=== PATIENT | female | born 1990 | race Hispanic/Latino ===

== ENCOUNTER 2022-11-28 17:26 | Emergency (ER) | payer OTHER, SELFPAY ==
--- OUTSIDE RECORDS SUMMARY | 2022-11-28 17:34 | XMS REPORT | Continuity of Care Document ---
:1990 Author Organization [facility] t Address [address] [place] [address] Care Team Providers Name Role Phone Juliet DENG, Lukas Childers Primary Care Physician [phone] GUSTAVO COLMENARES Attending Clinician Unavailable Billy Dennis Attending Clinician Felipe GARCIA, Frank Attending Clinician Unavailable Lisa Russell PA-C Attending Clinician LISA RUSSELL Attending Clinician Unavailable Doctor Unassigned, [place] Attending Clinician Unavailable Cecil Ojeda Attending Clinician Unavailable HOLDEN YUAN Attending Clinician Unavailable Pgy2 Attending Clinician Unavailable Yoav Delarosa MD Attending Clinician YOAV DELAROSA Attending Clinician Unavailable ALIYA VALENTIN Attending Clinician Unavailable Holden Emmanuel Attending Clinician BILLY DENNIS Attending Clinician Unavailable Will Mason Attending Clinician WILL MASON Attending Clinician Unavailable Huong Garvey Attending Clinician HUONG GARVEY Attending Clinician Unavailable Ngozi Zhang Attending Clinician Unavailable Aurelio Cantu Attending Clinician CHINYERE SCHWARTZ Attending Clinician Unavailable LIZZETTE MURILLO Attending Clinician Unavailable Shane Green Attending Clinician Gasper Cole Attending Clinician Gasper Cole Attending Clinician SHANE JADE Attending Clinician Unavailable Pari Saha Attending Clinician Unavailable Nael Preciado Attending Clinician Billy Dennis Attending Clinician Aman Matias Attending Clinician Shelley Nuñez Attending Clinician Shanae Cuevas Attending Clinician Marylu Strong Attending Clinician KNOW, DOES_NOT Admitting Clinician Unavailable Physician, No Primary or Family Admitting Clinician Unavaila ble Payers Payer Name Policy Type Policy Number Effective Date Expiration Date Hodan syed [facility] MEDICAID STAR [id number] 2018 00:00:00 Problems Condition Condition Condition Status Onset Resolution Last Treating Co mments Source Name Details Category Date Date Treatment Clinician Date Family Family Disease Active 2021-10 Univers planning, planning, 1-18 ity of IUD IUD 00:00: [place] (intrauter (intrauter 00 Me dical ine ine Branch device) device) check/rein check/rein sertion/re sertion/re moval moval Hyperprola Hyperprola Disease Active U nivers ctinemia ctinemia 05-25 ity of 00:00: [place] [address] Medical Branch Absence of Absence of Disease Active U nivers menstruati menstruati 05-25 it y of on on 00:00: [place] [address] Medical Branch FATTY FATTY Diagnosis Active 2022-04-08 Mem oria LIVER LIVER 04-08 09:19:00 l Active 00:00: Jose 04/08/2022 00 [place] C+, SOB C+, SOB Diagnosis Active 2022-02-23 Memoria Active 02-22 03:32:00 l 02/22/2022 00:00: Jesus alexander [address] CHEST PAIN CHEST Diagnosis Active 2022-02-23 Memoria PAIN 02-18 16:56:00 l Active 00:00: Jose 02/18/[address] [place] [address] K86.2 - K86.2 - Diagnosis Active 2019-102020-09-10 Memoria CYST OF CYST OF 10-25 12:42:00 l PANCREAS PANCREAS 00:01: Jesus alexander Active 00 08/25/2020 EBENEZER [place] R74.8 - R74.8 - Diagnosis Active 2018-102019-12-08 Memoria ABNORMAL ABNORMAL 2 09:54:00 l LEVELS OF LEVELS OF 00:01: Herm anant OTHER OTHER 00 SERUM K SERUM K Active 09/26/2019 EBENEZER [place] PTT LABS PTT LABS Diagnosis Active 2019-10-08 Memoria Active 06-13 10:51:00 l 06/13/2019 00:00: Jesus alexander [address] Center EGD / MAC EGD / MAC Diagnosis Active 2019-06-14 Memoria Active 06-08 09:03:00 l 06/08/2019 00:00: Jesus alexander [facility] [address] [place] R05 - R05 - Diagnosis Active 2017-102018-10-11 Me moria COUGH COUGH 2-10 15:31:00 l Active 00:01: Jose 10/02/2018 [facility] EBENEZER [place] VOMITING/F VOMITING/ Diagnosis Active 2017-11-15 Memoria EVER FEVER 11-15 12:25:00 l Active 00:00: Lyme 11/15/[address] [place] [address] History of History of Disease Active M ethodi pre-eclamp pre-eclamp 04-18 [facility] 00:00: Hospita 00 l Pyelonephr Pyelonephr Disease Active M ethodi itis itis 04-18 st affecting affecting 00:00: Hosp luis 00 l in third in third trimester trimester History of History of Disease Active Overview : Methodi 04-18 Formattin s t 00:00: g of this Hospita 00 note l might be different from the original. 2 previous s Obesity Obesity Disease Active Univers 05-20 ity of 00:00: [place] 00 Medical Branch Papanicola Papanicola Disease Active Overview : Univers ou smear ou smear 10-31 Formattin ity of of cervix of cervix 00:00: [place] of this [place] with low with low 00 note Medica l grade grade might be Branch squamous squamous different intraepith intraepith from the eliareli guan original. lesion lesion colpo (LGSIL) (LGSIL) 12/04/2014 History of History of Disease Active 2013-10 U nivers abnormal abnormal 2-30 ity of cervical cervical 00:00: [place] Papanicola Papanicola 00 Me dical ou smear ou smear Branch S/P S/P Disease Active Univers bilateral bilateral 4-09 ity of breast breast 00:00: [place] reduction reduction 00 [facility] Branch Acute Acute Problem Active 2022-10-15 Memor ia sinusitis sinusitis 10:57:24 l (disorder) (disorder) He ann Active Problem 10/15/2022 Medical Group Influenza- Influenza Problem Active 2022-10-15 Memoria like -like 10:57:24 l symptoms symptoms Jesus n (finding) (finding) Active Problem 10/15/2022 Medical Group Suspected Suspected Problem Active 2022-10-15 Memoria disease disease 10:57:24 l caused by caused by Herm anant 2019-nCoV 2019-nCoV Active Problem 10/15/2022 Medical Group R52 - R52 - Diagnosis Active 2021-10-20 Mem oria PAIN, PAIN, 07:50:00 l UNSPECIFIE UNSPECIFIE He rmann D D Active EBENEZER [place] R10.13 - R10.13 - Diagnosis Active 2021-12-14 Memoria EPIGASTRIC EPIGASTRIC 15:26:00 l PAIN R19.4 PAIN R19.4 He rmann - CHANGE - CHANGE Active EBENEZER [place] FATTY FATTY Diagnosis Active 2022-04-08 Mem oria (CHANGE (CHANGE 09:19:00 l OF) LIVER, OF) LIVER, He rmann NOT NOT ELSEWHERE ELSEWHERE C C Active [facility] CHANGE IN CHANGE IN Diagnosis Active 2022-04-08 Memoria BOWEL BOWEL 09:19:00 l HABIT HABIT [place] Active [facility] Bleeds Bleeds Problem Active 2022-10-15 Cristi norma easily easily 10:57:24 l (finding) (finding) Herm anant Active Problem 10/15/2022 Medical Group,[facility], [facility], EBENEZER [place],[facility] OPID [facility] Decreased Decreased Problem Active 2022-10-15 Memoria vitamin D vitamin D 10:57:24 l (finding) (finding) Herm anant Active Problem 10/15/2022 Medical Group,[facility], [facility], EBENEZER [place],[facility] OPID [facility] Fatigue Fatigue Problem Active 2022-10-15 Me moritheo (finding) (finding) 10:57:24 l Active Lyme Problem 10/15/2022 Medical Group,[facility], [facility], EBENEZER [place],[facility] KEVIND [facility] Gastroesop Gastroeso Problem Active 2022-10-15 Memoria hageal phageal 10:57:24 l reflux reflux Lyme disease disease (disorder) (disorder) Active Problem 10/15/2022 Medical Group,[facility], [facility], EBENEZER [place],[facility] OPID [facility] Mild Mild Problem Active 2022-10-15 Memor ia intermitte intermitte 10:57:24 l nt asthma nt asthma Herm anant (disorder) (disorder) Active Problem 10/15/2022 Medical Group,[facility], [facility], EBENEZER [place],[facility] OPID [facility] Patient Patient Problem Active 2022-10-15 Me moria encounter encounter 10:57:24 l status status Jose (finding) (finding) Active Problem 10/15/2022 Medical Group,[facility], EBENEZER [facility] Simple Simple Problem Active 2022-10-15 Cristi norma obesity obesity 10:57:24 l (disorder) (disorder) He rukhsana Active Problem 10/15/2022 Medical Group,[facility], EBENEZER [place],[facility] Disease Disease Problem Active 2022-10-15 Me moria caused by caused by 10:57:24 l Herm anant Active Problem 10/15/2022 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 Active Problem 10/15/2022 [facility] Exposure Exposure Diagnosis 2021-102022-10-15 2022-10-15 Memoria to to 12-13 10:57:24 10:57:24 l communicab communicab 16:39: He rukhsana le disease le disease 00 (event) (event) 10/12/2022 Diagnosis 10/15/2022 Medical Group General General Diagnosis 2021-102022-10-15 2022-10-15 Memoria finding of finding of 12-13 10:57:24 10:57:24 l observatio observatio 16:39: He rukhsana n of n of 00 patient patient (finding) (finding) 10/12/2022 Diagnosis 10/15/2022 Medical [facility] History of Past Illness Condition Condition Condition Status Onset Resolution Last Treating Co mments Source Name Details Category Date Date Treatment Clinician Date 2018- Problem 2022-02-26 2022-02-26 Memoria acute acute 02-24 21:10:42 21:10:42 l respirator respirator 00:33: He rukhsana y disease y disease 00 02/24/2022 [place] Cough Cough Problem 2017-102019-04-22 2019-04-22 M balajiritheo 10/08/2018 2-16 11:14:33 11:14:33 l 04/22/2019 04:21: Jesus RUIZ OPID [address] [place] Allergies, Adverse Reactions, Alerts Allergy Allergy Status Severity Reaction(s) Onset Inactive Treating Comm ents Source Name Type Date Date Clinician Penicill Propensi Active Hives Univer s ins ty to 4-25 ity of adverse 00:00: [place] reaction 00 Medical s Branch PENICILL Drug Active Hives Univers INS Class 4-25 ity of 00:00: [place] [facility] Penicill Propensi Active Hives Univer s ins ty to 4-25 ity of adverse 00:00: [place] reaction Medical s Branch Levoflox Drug Active Nausea Other Univers acin Allergy and/or 5-12 reaction( ity of Vomiting 00:00: s): VOMITINGO Medical ther Branch reaction( s): VOMITING LEVOFLOX DRUG Active N/V Univers ACIN INGREDI 5-12 ity of 00:00: [place] 00 Medical Branch levoflox DA Active [facility] acin 5-12 Clear 00:00: [place] 00 [facility] levoflox DA Active SV VOMITING [facility] acin 5-12 Clear 00:00: [place] 00 [facility] Adhesive Propensi Active Rash Univer s ty to 8-07 ity of adverse 00:00: [place] reaction 00 Medical s Branch ADHESIVE Drug Active Rash Univers Class 8-07 ity of 00:00: [place] [facility] Adhesive Propensi Active Rash Univer s ty to 807 ity of adverse 00:00: [place] reaction Medical s Branch Adhesive Propensi Active [place] [facility] ty to 807 Health adverse 00:00: reaction 00 s No Known DA Active U [facility] Allergie 1- [place] s 00:00: d 00 [facility] Levaquin Levaquin Active Jacky Garcia Social History Social Habit Start Date Stop Date Quantity Comments Source History SDOH University o f Alcohol Frequency [place] M edical Branch History SDOH University o f Alcohol Std [place] Medical Drinks Branch History SDOH University o f Alcohol Binge [place] Medic al Branch History of Passive smoker University of tobacco use [facility] Social History 2022-10-12 2022-10-12 [facility] ermann 16:28:49 16:28:49 Exposure to 2022-08-31 2022-09-10 Not sure University SARS-CoV-2 00:00:00 14:08:[address] [facility] [place] [place] ([facility] [place] Tobacco use and 2022-05-24 2022-05-24 Smokeless tobacco Un iversity of exposure 00:00:00 00:00:00 non-user [facility] Social History 2020-06-16 2020-06-16 [facility] ermann 15:01:13 15:01:13 Alcohol intake 2017-10-24 2017-10-24 Current drinker [facility] 00:00:00 00:00:00 of [facility] (finding) Alcohol Comment 2017-10-24 2017-10-24 occasional Catholic 00:00:00 00:00:00 Hospital Smoking Status Start Date Stop Date Source Tobacco smoking consumption unknown [facility] Tobacco smoking status [facility] Medications Ordered Filled Start Stop Current Ordering Indication Dosage Frequency Signature Comments Components Source Medication Medication Date Date Medication? Clinician (SIG) Name Name Medrol 2021-10 Yes See Memoria Dosepak 4 2-20 Instructio l mg oral 16:59: ns, PO, [place] tablet 00 Take by mouth as directed on label., X 6 day, # 21 tab, 0 Refill(s), Pharmacy: [facility] #[id number], 152.4, cm, 10/12/22 10:31:00 OXYHYDROGEN WELDER, Height, 82.955, kg, 10/12/22 10:31:00 OXYHYDROGEN WELDER, Weight Bromfed DM 2021-10 Yes 10 mL, PO, M emoria oral syrup 2-20 TID, PRN l 16:59: cough, X 6 Jose 00 day, # 180 mL, 0 Refill(s), Pharmacy: [facility] #[id number], 152.4, cm, 10/12/22 10:31:00 OXYHYDROGEN WELDER, Height, 82.955, kg, 10/12/22 10:31:00 OXYHYDROGEN WELDER, Weight LOESTRIN FE 2021-10 Yes [id number] 1{tbl} Take 1 Univers 1 mg-20 mcg 1-18 tablet by ity of (21)/75 mg 00:00: mouth in [place] as (7) tablet 00 the Medical morning. Branch norethindro 2021-10 Yes [id number] 1{tbl} Take 1 Univers ne 0.35 mg 1-18 tablet by ity of tablet 00:00: mouth in [place] 00 the Medical morning. Branch norethindro 2021-10 Yes [id number] 1{tbl} Take 1 Univers ne 0.35 mg 1-18 tablet by ity of tablet 00:00: mouth in [place] 00 the Medical morning. Branch norethindro 2021-10 Yes [id number] 1{tbl} Take 1 Univers ne 0.35 mg 1-18 tablet by ity of tablet 00:00: mouth in [place] 00 the Medical morning. Branch norethindro 2021-10 Yes [id number] 1{tbl} Take 1 Univers ne 0.35 mg 1-18 tablet by ity of tablet 00:00: mouth in [place] 00 the Medical morning. Branch norekingsleyndro 2021-10 Yes [id number] 1{tbl} Take 1 Univers ne 0.35 mg 1-18 tablet by ity of tablet 00:00: mouth in [place] 00 the Medical morning. Branch ibuprofen 2021-10- Yes [id number] 800mg Take 1 Univers 800 mg 1-18 11-24 tablet by ity of tablet 00:00: 05:59 mouth in [place] 00 :00 the Medical morning Branch and 1 tablet at noon and 1 tablet in the evening. Take with meals. Do all this for 5 days. ibuprofen 2021-10- Yes [id number] 800mg Take 1 Univers 800 mg 1-18 11-24 tablet by ity of tablet 00:00: 05:59 mouth in [place] 00 :00 the Medical morning Branch and 1 tablet at noon and 1 tablet in the evening. Take with meals. Do all this for 5 days. ibuprofen 2021-10- Yes [id number] 800mg Take 1 Univers 800 mg 1-18 11-24 tablet by ity of tablet 00:00: 05:59 mouth in [place] 00 :00 the Medical morning Branch and 1 tablet at noon and 1 tablet in the evening. Take with meals. Do all this for 5 days. ibuprofen 2021-10- No [id number] 800mg Take 1 Univers 800 mg 1-18 11-24 tablet by ity of tablet 00:00: 05:59 mouth in [place] 00 :00 the Medical morning Branch and 1 tablet at noon and 1 tablet in the evening. Take with meals. Do all this for 5 days. ibuprofen 2021-10- No [id number] 800mg Take 1 Univers 800 mg 1-18 11-24 tablet by ity of tablet 00:00: 05:59 mouth in [place] 00 :00 the Medical morning Branch and 1 tablet at noon and 1 tablet in the evening. Take with meals. Do all this for 5 days. ibuprofen 2021-10- No [id number] 800mg Take 1 Univers 800 mg 1-18 11-24 tablet by ity of tablet 00:00: 05:59 mouth in [place] 00 :00 the Medical morning Branch and 1 tablet at noon and 1 tablet in the evening. Take with meals. Do all this for 5 days. LOESTRIN FE 2021-10- No [id number] 1{tbl} Take 1 Univers 1 mg-20 mcg 1-18 11-18 tablet by it y of (21)/75 mg 00:00: 00:00 mouth in [place] (7) tablet 00 :00 the Medical morning. Branch LOESTRIN FE 2021-10- No [id number] 1{tbl} Take 1 Univers 1 mg-20 mcg 1-18 11-18 tablet by it y of (21)/75 mg 00:00: 00:00 mouth in [place] (7) tablet 00 :00 the Medical morning. Branch LOESTRIN FE 2021-10- No [id number] 1{tbl} Take 1 Univers 1 mg-20 mcg 1-18 11-18 tablet by it y of (21)/75 mg 00:00: 00:00 [place] (7) tablet 00 :00 the Medical morning. Branch levonorgest 2021- No [id number] 1{devic Univers reL 8 08-17 e} ity of (KYLEENA) 20:48: 22:22 [place] IUD 1 00 :00 Senior Process Engineer Branch levonorgest 2021- No [id number] 1{devic 1 Device, Univers reL 817 08-17 e} Intrauteri ity of (KYLEENA) 20:48: 22:22 ne, ONCE, [place] IUD 1 00 :00 1 dose, On Senior Process Engineer [facility] Branch 06/09/22 at 1600, Routine No known No No known Unive rs medications 06-09 medication it y of 16:01: s [address] ketOROLAC No 15 mg, Memori a 15 mg/mL -16 Route: IV, l injectable 16:03: ONCE, Jesus n solution 00 Dosing Weight 77.273, kg, Start date: 04/08/22 11:03:00 CDT, Stop date: 04/08/22 11:03:00 CDT Augmentin 2021-0 Yes 875 mg = 1 Me moria 875 mg oral 5-17 tab, PO, l tablet 15:53: Q12H, X 7 Jesus n 00 day, # 14 tab, 0 Refill(s), other levocetiriz Yes 5 mg = 1 Me moria ine 5 mg 5-17 tab, PO, l oral tablet 15:47: QPM, # 30 H ermann 00 tab, 2 Refill(s), Pharmacy: [facility] #[id number], 152.4, cm, 03/09/22 10:32:00 CDT, Height, 80.653, kg, 03/09/22 10:32:00 CDT, Weight omeprazole 0 Yes 20 mg = 1 Me moria 20 mg oral 5-17 tab, PO, l enteric 15:31: Daily, 0 Jesus n coated 00 Refill(s) tablet albuterol Yes 2 puff, Memor ia 90 mcg/inh 5-04 INHALATION l inhalation 00:30: , QID, # Her mendes aerosol 00 17 gm, 0 Refill(s), 152.4, cm, 02/23/22 16:06:00 CDT, Height, 82.2, kg, 02/23/22 16:06:00 CDT, Weight predniSONE Yes 20 mg = 1 Me moria 20 mg oral 5-04 tab, PO, l tablet 00:29: Daily, X 5 Ambar nn 00 day, # 5 tab, 0 Refill(s), 152.4, cm, 02/23/22 16:06:00 CDT, Height, 82.2, kg, 02/23/22 16:06:00 CDT, Weight acetaminoph No Notes: Do M emoria en 02-23 not exceed l 22:08: 4 gm/day. Jose (Same as: Tylenol) ibuprofen No Notes: Memori a - (Same as: l 22:08: Motrin) "Do Not Crush" Take with food. NS (Bolus) No 500 mL, Cristi norma IV - 500 ml/hr, l 22:08: Infuse Over: 1 hr, Route: IV, 500, Drug form: INJ, ONCE, Priority: STAT, Dosing Weight 82.2 kg, Start date: 02/23/22 17:08:00 CDT, Stop date: 02/23/22 17:08:00 CDT, 0 predniSONE Yes 40 mg = 2 Me moria 20 mg oral 5-03 tab, PO, l tablet 20:12: Daily, X 5 Ambar nn day, # 10 tab, 0 Refill(s), Pharmacy: [facility] #[id number], 152.4, cm, 02/23/22 2:35:00 CDT, Height, 84.091, kg, 02/23/22 2:35:00 CDT, Weight benzonatate Yes 10 ea, 0 Me moria 100 mg oral 5-03 Refill(s) l capsule 19:45: [place] 00 Paxlovid Yes 30 ea, 0 Memor ia 150 mg-100 5-03 Refill(s) l mg oral 19:45: Jose tablet 00 Aurovela Fe Yes 84 ea, Cristi norma 1.5/30 oral 5-03 TAKE 1 l tablet 19:45: TABLET BY Jesus n 00 MOUTH DAILY, 0 Refill(s) albuterol Yes 75 mL, 0 Cristi norma 0.083% 5- Refill(s) l inhalation 19:45: Jose solution 00 ibuprofen Yes 30 ea, Memori a 600 mg oral 5-03 TAKE 1 l tablet 19:44: TABLET BY Jesus n 00 MOUTH EVERY 8 HOURS FOR 10 DAYS NEEDED FOR PAIN, 0 Refill(s) budesonide Yes 60 mL, 0 Mem oria 0.25 mg/2 5-03 Refill(s) l mL 19:44: Jose inhalation 00 suspension bromphenira Yes 200 mL, Mem oria mine/dextro 03 TAKE 5 TO l methorphan/ 19:44: 10 ML BY He rmann PSE 2 mg-10 00 MOUTH mg-30 mg/5 EVERY 6 mL oral HOURS syrup NEEDED FOR COUGH, 0 Refill(s) non-formula Yes 4 ea, TEST Memoria ry 02-23 l 19:44: DIRECTED [place] 00 TODAY, Refill(s) 0 Vitamin D2 Yes 50,000 Memor ia 50,000 intl 9-23 IntlUnit = l units oral 20:57: 1 cap, PO, H ermann capsule 00 2x/Wk, # 24 cap, 1 Refill(s), Pharmacy: [facility] #[id number], 152.4, cm, 07/14/21 8:56:00 CDT, Height, 80.256, kg, 07/14/21 8:56:00 CDT, Weight Vitamin D2 Yes 50,000 Memor ia 50,000 intl 9-23 IntlUnit = l units oral 20:57: 1 cap, PO, H ermann capsule 00 2x/Wk, # 24 cap, 1 Refill(s), Pharmacy: [facility] #[id number], 152.4, cm, 07/14/21 8:56:00 CDT, Height, 80.256, kg, 07/14/21 8:56:00 CDT, Weight ergocalcife Yes [id number] Take [place] rol 9-23 50,000 Health (Vitamin 00:00: Units by D2) 1.25 MG 00 mouth 2 (00475 UT) (two) capsule times a week. 1 capsule twice a week {6 No See Memoria (Azithromyc 3-21 Instructio l in 250 MG 00:56: ns, Take 2 He rmann Oral Tablet 00 tablets by [Zithromax] mouth the ) } Pack first day [Z-PAKS] then 1 tablet by mouth days 2-5., X 5 day, # 6 tab, 0 Refill(s), 152.4, cm, 01/10/21 19:10:00 CDT, Height, 83.636, kg, 01/10/21 19:10:00 CDT, Weight ProAir HFA 0 Yes 2 puff, Cristi norma 90 mcg/inh 1-14 INHALER, l inhalation 20:22: Q4H, PRN Her mendes aerosol 00 wheezing, with coughing, adapter or shortness of breath, # 1 ea, 1 Refill(s), Pharmacy: [facility] #[id number], 152.4, cm, 06/16/20 9:59:00 CDT, Height, 76.364, kg, 06/16/20 9:59:00 CDT, Weight 200 ACTUAT 2019-0 Yes 2 puff, Cristi norma Albuterol 8-24 INHALER, l 0.09 18:17: Q4H, PRN Jose MG/ACTUAT 00 wheezing, Metered coughing, Dose or Inhaler shortness [ProAir of breath, HFA] # 1 ea, 1 Refill(s), Pharmacy: [facility] #[id number], 152.4, cm, 06/16/20 9:59:00 CDT, Height, 76.364, kg, 06/16/20 9:59:00 CDT, Weight DME Yes See Memoria Addition #1 8-24 Instructio l 18:17: ns, Please Jose 00 dispense one Pulse Oximeter for Oxygen saturation monitoring , # 1 ea, 0 Refill(s), Pharmacy: [facility] #[id number], 152.4, cm, 06/16/20 9:59:00 CDT, Height, 76.364, kg, 06/16/20 9:59:00 CDT, Weight {2019-0 Yes See Memoria (Methylpred 7-15 Instructio l nisolone 4 20:25: ns, PO, Herm anant MG Oral 00 Take by Tablet mouth as [Medrol]) } directed Pack on label. [Medrol DO NOT Dosepak] TAKE IF YOU ARE , X 6 day, # 21 tab, 0 Refill(s), Pharmacy: [facility] #[id number], Disregard previous RX, 152.4, cm, 05/01/20 20:26:00 CDT, Height, 76.364, kg, 05/01/20 20:... {21 2019-0 No See Memoria (Methylpred 7-15 Instructio l nisolone 4 20:11: ns, PO, Herm anant MG Oral 00 Take by Tablet mouth as [Medrol]) } directed Pack on label., [Medrol X 6 day, # Dosepak] 21 tab, 0 Refill(s), [id number], 152.4, cm, 05/01/20 20:26:00 CDT, Height, 76.364, kg, 05/01/20 20:26:00 CDT, Weight 200 ACTUAT 2020-0 Yes 2 puff, Cristi norma Albuterol 7-15 INHALER, l 0.09 20:10: Q4H, PRN [place]yme MG/ACTUAT 00 wheezing, Metered coughing, Dose or Inhaler shortness [ProAir of breath, HFA] # 1 ea, 0 Refill(s), [id number], 152.4, cm, 05/01/20 20:26:00 CDT, Height, 76.364, kg, 05/01/20 20:26:00 CDT, Weight Ofloxacin 3 2020-0 Yes 5 drp, Cristi norma MG/ML Otic 7-10 LEFT EAR, l Solution 02:10: BID, X 10 Herm anant day, # 10 mL, 0 Refill(s), [id number], 152.4, cm, 05/01/20 20:26:00 CDT, Height, 76.364, kg, 05/01/20 20:26:00 CDT, Weight Amoxicillin 2020-0 Yes 875 mg = 1 Memoria 875 MG / 7-10 tab, PO, l Clavulanate 02:10: Q12H, X 7 H ermann 125 MG Oral 00 day, # 14 Tablet tab, 0 [Augmentin Refill(s), 875-mg] [id number], 152.4, cm, 05/01/20 20:26:00 CDT, Height, 76.364, kg, 05/01/20 20:26:00 CDT, Weight meclizine 2020-0 Yes 12.5 mg = Mem oria 12.5 mg 7-10 1 tab, PO, l oral tablet 02:10: BID, PRN He rmann 00 as needed for dizziness, X 7 day, # 14 tab, 0 Refill(s), Pharmacy: [facility] #[id number], 152.4, cm, 05/01/20 20:26:00 CDT, Height, 76.364, kg, 05/01/20 20:26:00 CDT, Weight SUCRALFATE 2019-0 Yes See Memoria 1GM/10ML 4-10 Instructio l SUSPENSION 15:03: ns, # Jesus n 30 3,600 mL, SHAKE LIQUID AND TAKE 10 ML BY MOUTH BEFORE MEALS AND AT BEDTIME, [id number] { Yes See Memoria (Methylpred 4-08 Instructio l nisolone 4 19:16: ns, PO, Herm anant MG Oral 00 Take by Tablet mouth as [Medrol]) } directed Pack on label., [Medrol X 6 day, # Dosepak] 21 tab, 0 Refill(s), [id number] levocetiriz 2019-0 Yes See Memori a ine 5 mg 4-08 Instructio l oral tablet 19:15: ns, # 90 He rmann 53 tab, TAKE 1 TABLET BY MOUTH EVERY EVENING, [facility] STORE #[id number] { No See Memoria (Methylpred 4-08 Instructio l nisolone 4 18:36: ns, PO, Herm anant MG Oral 00 Take by Tablet mouth as [Medrol]) } directed Pack on label., [Medrol X 6 day, # Dosepak] 2 tab, 0 Refill(s), [id number] levocetiriz 2020-0 Yes 5 mg = 1 Me moria ine 5 mg 4-08 tab, PO, l oral tablet 18:35: QPM, # 30 H ermann 00 tab, 1 Refill(s), [id number] Sucralfate Yes 1 gm = 10 Me moria 100 MG/ML 4-08 ml, PO, l Oral 18:24: Before Lyme Suspension 00 Meals & Bedtime, # 200 ml, 0 Refill(s), [id number] 200 ACTUAT Yes 2 puff, Cristi norma Albuterol 4-08 INHALER, l 0.09 18:24: Q6H, PRN Lyme MG/ACTUAT 00 wheezing, Metered coughing, Dose or Inhaler shortness [ProAir of breath, HFA] # 1 ea, 1 Refill(s), Pharmacy: [facility] STORE #[id number] Sucralfate 2018-10 Yes 1 gm = 10 Me moria 100 MG/ML 1-26 ml, PO, l Oral 18:03: Before Lyme Suspension 00 Meals & Bedtime, # 200 ml, 0 Refill(s), [id number] Calcium 2019-0 No 1,000 mL, Memor ia Chloride 8-22 Rate: 75 l 0.0014 14:40: ml/hr, Lyme MEQ/ML / 00 Infuse Potassium over: 13.3 Chloride hr, Route: 0.004 IV, Dosing MEQ/ML / Weight Sodium 70.455 kg, Chloride Total 0.103 Volume: MEQ/ML / 1,000, Sodium Start Lactate date: 0.028 06/14/19 MEQ/ML 9:40:00 Injectable CDT, Solution Duration: 1 day, Stop date: 06/15/19 9:39:00 CDT, 1.75, m2, 0 Sodium 2019-0 No 1,000 mL, Memori a Chloride 8-22 Rate: 75 l 0.9% IV 14:40: ml/hr, Lyme 1,000 mL 00 Infuse over: 13.3 hr, Route: IV, Dosing Weight 70.455 kg, Total Volume: 1,000, Start date: 06/14/19 9:40:00 CDT, Duration: 1 day, Stop date: 06/15/19 9:39:00 CDT, 1.75, m2, 0 omeprazole 2019- Yes See Memoria 40 mg oral 8-13 Instructio l delayed 16:42: ns, # 90 Jesus n release 55 unknown capsule unit, TAKE 1 CAPSULE BY MOUTH DAILY, Pharmacy: [facility] ST[facility] #[id number] Fluticasone 2019 Yes See Memori a propionate 8-13 Instructio l 0.05 16:42: ns, # 48 Lyme MG/ACTUAT 49 mL, Metered Refill(s) Dose Nasal 1, SHAKE [place] LIQUID AND USE 2 SPRAYS IN EACH NOSTRIL DAILY, Pharmacy: [facility] STORE #[id number] 200 ACTUAT 2018- Yes 2 puff, Cristi norma Albuterol 8-13 INHALER, l 0.09 16:42: Q6H, PRN Lyme MG/ACTUAT 00 wheezing, Metered coughing, Dose or Inhaler shortness [ProAir of breath, HFA] # 1 ea, 1 Refill(s), [id number] Fluticasone No 2 spray, Me moria propionate 8-13 NASAL, l 0.05 16:26: Daily, in Jose MG/ACTUAT 00 each Metered nostril, # Dose Nasal 16 gm, 1 [place] Refill(s), [Flonase] [id number] bifidobacte Yes 1 cap, PO, Memoria rium-lactob 8-13 Daily, # l acillus 16:25: 30 cap, 0 Ambar nn oral 00 Refill(s), capsule [id number] omeprazole No 40 mg = 1 Me moria 40 mg oral 8-13 cap, PO, l delayed 16:24: Daily, # Jesus n release 00 30 cap, 0 capsule Refill(s), [id number] { Yes See Memoria (Methylpred 8-13 Instructio l nisolone 4 16:23: ns, PO, Herm anant MG Oral 00 Take by Tablet mouth as [Medrol]) } directed Pack on label., [Medrol X 6 day, # Dosepak] 1 Pack, 0 Refill(s), [id number] Bromphenira 2017-10 No 10 mL, PO, Memoria mine 2-10 Q4H, PRN l Maleate 0.4 20:02: cough, X 8 Lyme MG/ML / 00 day, # 240 Dextrometho mL, 0 rphan Refill(s), Hydrobromid Pharmacy: e 2 MG/ML / [facility] [id number] Hydrochlori de 6 MG/ML Oral Solution [Bromfed DM] {2017-10 Yes See Memoria (Methylpred 2-10 Instructio l nisolone 4 20:02: ns, PO, as H ermann MG Oral 00 directed Tablet on package [Medrol]) } labeling, Pack # 1 Pack, [Medrol 0 Dosepak] Refill(s), Pharmacy: [facility] [id number] 200 ACTUAT 2017-10 Yes 2 puff, Cristi norma Albuterol 2-05 INHALER, l 0.09 20:31: Q4H, PRN Lyme MG/ACTUAT 00 for Metered wheezing, Dose # 8.5 gm, Inhaler 0 [ProAir Refill(s) HFA] Vitamin D3 2017-10 Yes 50,000 Memor ia 50,000 intl 2-04 IntlUnit = l units oral 13:09: 1 cap, PO, H ermann capsule 00 qWeek, # 12 cap, 0 Refill(s), [id number] Esomeprazol 2017-10 Yes 20 mg = 1 M emoria e 20 MG 1-28 cap, PO, l Enteric 16:47: Daily, # Jesus n Coated 00 90 cap, 0 Capsule Refill(s), [id number] 200 ACTUAT 2017-10 No 2 puff, Cristi norma Albuterol 1-28 INHALATION l 0.09 16:47: , Q4H, # 1 Jose MG/ACTUAT 00 unit, 1 Dry Powder Refill(s), Inhaler [facility] [id number] No known No No known Metho di medications 10-[address] 01:08: [facility] 06 l Immunizations Ordered Filled Immunization Date Status Comments [facility] e Immunization Name Name Varicella 2022-07-09 Completed [facility] Varicella 2022-07-09 Completed [facility] 00:00[facility]00 [facility] PFIZER COVID-19 2022-05-25 Completed [facility] MRNA VACCINATION 00:00:00 [facility] PFIZER COVID-19 2022-05-25 Completed [facility] MRNA VACCINATION 00:00:00 [facility] HPV9 2022-05-24 Completed [facility] 00:00:00 [facility] HPV9 2022-05-24 Completed [facility] 00:00:00 [facility] HPV9 2022-05-24 Completed [facility] 00:00:00 [facility] HPV9 2022-05-24 Completed [facility] 00:00:00 [facility] HPV9 2022-05-24 Completed [facility] 00:00:00 [facility] HPV9 2022-05-24 Completed [facility] 00:00:00 [facility] HPV9 2022-05-24 Completed [facility] 00:00:00 [facility] 2022-05-24 Completed [facility] 00:00:00 [facility] Influenza Virus 2021-08-03 Completed [facility]it [facility] IM 3+ 00:00:00 [facility] Influenza Virus 2021-08-03 Completed [facility]it y [facility] IM 3+ 00:00:00 [facility] Influenza Virus 2021-08-03 Completed [facility] IM 3+ 00:00:00 [facility] Influenza Virus 2021-08-03 Completed [facility]it [facility] IM 3+ 00:00:00 [facility] Influenza Virus 2021-08-03 Completed [facility]it y of [facility] IM 3+ 00:00:00 [facility] Influenza Virus 2021-08-03 Completed [facility]it [facility] IM 3+ 00:00:00 [facility] Influenza Virus 2021-08-03 Completed [facility]it y of [facility] IM 3+ 00:00:00 [facility] Influenza Virus 2021-08-03 Completed [facility]it y [facility] IM 3+ 00:00:00 [facility] TDAP 2021-06-09 Completed [facility] of 00:00:00 [facility] TDAP 2021-06-09 Completed [facility] 00:00:00 [facility] TDAP 2021-06-09 Completed [facility] 00:00:00 [facility] TDAP 2021-06-09 Completed [facility] 00:00:00 [facility] TDAP 2021-06-09 Completed [facility] 00:00:00 [facility] TDAP 2021-06-09 Completed [facility] 00:00:00 [facility] TDAP 2021-06-09 Completed [facility] 00:00:00 [facility] TDAP 2021-06-09 Completed [facility] 00:00:00 [facility] TDAP 2017-04-13 Completed [facility] 00:00:00 [facility] TDAP 2017-04-13 Completed [facility] 00:00:00 [facility] TDAP 2017-04-13 Completed [facility] 00:00:00 [facility] TDAP 2017-04-13 Completed [facility] 00:00:00 [facility] TDAP 2017-04-13 Completed [facility] 00:00:00 [facility] TDAP 2017-04-13 Completed [facility] 00:00:00 [facility] TDAP 2017-04-13 Completed [facility] 00:00:00 [facility] TDAP 2017-04-13 Completed [facility] 00:00:[address] [facility] HPV 2014-10-22 Completed [facility] 00:00:[address] [facility] HPV 2014-10-22 Completed [facility] 00:00:00 [facility] HPV 2014-10-22 Completed [facility] 00:00:[address] [facility] HPV 2014-10-22 Completed [facility] 00:00:[address] [facility] HPV 2014-10-22 Completed [facility] of 00:00:[address] [facility] HPV 2014-10-22 Completed University of 00:00:[address] [facility] HPV 2014-10-22 Completed [facility] of 00:00:[address] [facility] HPV 2014-10-22 Completed University of 00:00:[address] [facility] TDAP 2014-04-23 Completed [facility] of 00:00:00 [facility] TDAP 2014-04-23 Completed [facility] 00:00:00 [facility] TDAP 2014-04-23 Completed [facility] 00:00:00 [facility] TDAP 2014-04-23 Completed [facility] 00:00:00 [facility] TDAP 2014-04-23 Completed [facility] 00:00:00 [facility] TDAP 2014-04-23 Completed [facility] 00:00:00 [facility] TDAP 2014-04-23 Completed [facility] 00:00:00 [facility] TDAP 2014-04-23 Completed [facility] 00:00:[address] [facility] Rubella 2012-08-24 Completed [facility] 00:00:00 [facility] Rubella 2012-08-24 Completed [facility] 00:00:00 [facility] Rubella 2012-08-24 Completed [facility] 00:00:00 [facility] Rubella 2012-08-24 Completed [facility] 00:00:00 [facility] Rubella 2012-08-24 Completed [facility] 00:00:00 [facility] Rubella 2012-08-24 Completed [facility] 00:00:00 [facility] Rubella 2012-08-24 Completed [facility] 00:00:00 [facility] Rubella 2012-08-24 Completed [facility] of 00:00:00 [facility] MMR 2012-06-11 Completed [facility] 00:00:00 [facility] MMR 2012-06-11 Completed [facility] 00:00:00 [facility] MMR 2012-06-11 Completed [facility] 00:00:00 [facility] MMR 2012-06-11 Completed [facility] 00:00:00 [facility] MMR 2012-06-11 Completed [facility] 00:00:00 [facility] MMR 2012-06-11 Completed [facility] 00:00:00 [facility] MMR 2012-06-11 Completed [facility] of 00:00:00 [facility] MMR 2012-06-11 Completed [facility] of 00:00:00 [facility] TDAP 2011-06-06 Completed [facility] 00:00:00 [facility] TDAP 2011-06-06 Completed [facility] 00:00:00 [facility] TDAP 2011-06-06 Completed [facility] 00:00:00 [facility] TDAP 2011-06-06 Completed [facility] 00:00:00 [facility] TDAP 2011-06-06 Completed [facility] 00:00:00 [facility] TDAP 2011-06-06 Completed [facility] 00:00:00 [facility] TDAP 2011-06-06 Completed [facility] 00:00:00 [facility] TDAP 2011-06-06 Completed [facility] 00:00:00 [facility] MMR 2009-04-17 Completed [facility] 00:00:00 [facility] MMR 2009-04-17 Completed [facility] 00:00:00 [facility] MMR 2009-04-17 Completed [facility] 00:00:00 [facility] MMR 2009-04-17 Completed [facility] 00:00:00 [facility] MMR 2009-04-17 Completed [facility] 00:00:00 [facility] MMR 2009-04-17 Completed [facility] 00:00:00 [facility] MMR 2009-04-17 Completed [facility] 00:00:00 [facility] MMR 2009-04-17 Completed [facility] 00:00:00 [facility] Td 2002-10-24 Completed [facility] 00:00:00 [facility] Td 2002-10-24 Completed [facility] 00:00:00 [facility] Td 2002-10-24 Completed [facility] 00:00:00 [facility] Td 2002-10-24 Completed [facility] 00:00:00 [facility] Td 2002-10-24 Completed [facility] 00:00:00 [facility] Td 2002-10-24 Completed [facility] 00:00:00 [facility] Td 2002-10-24 Completed [facility] 00:00:00 [facility] Td 2002-10-24 Completed [facility] of 00:00:[address] [facility] Vital Signs Vital Name Observation Time Observation Value Comments Source Systolic blood 2022-09-10 22:07:00 132 mm[Hg] Univer sity of pressure [facility] Diastolic blood 2022-09-10 22:07:00 88 mm[Hg] Unive rsity of pressure [facility] Heart rate 2022-09-10 20:05:00 71 /min Universi ty [facility] Body temperature 2022-09-10 20:05:00 [facility].06 [facility] 2022-09-10 20:05:00 19 /min Univ [facility] Body height 2022-09-10 20:05:00 152.4 cm [facility] Body weight 2022-09-10 20:05:00 82.101 kg [facility] BMI 2022-09-10 20:05:00 35.35 kg/m2 [facility] Systolic blood 2022-06-09 19:40:00 123 mm[Hg] Univer sity of pressure [facility] Diastolic blood 2022-06-09 19:40:00 81 mm[Hg] Unive rsity of pressure [facility] Heart rate 2022-06-09 19:40:00 85 /min Universi ty [facility] Body temperature 2022-06-09 19:40:00 36.22 [facility] Res[facility] rate 2022-06-09 19:40:00 18 /min [facility] Body height 2022-06-09 19:40:00 152.4 cm [facility] Body weight 2022-06-09 19:40:00 81.647 kg [facility] BMI 2022-06-09 19:40:00 35.15 kg/m2 [facility] Systolic blood 2021-10-02 15:08:00 142 mm[facility]Hg[facility] Diastolic blood 2021-10-02 15:08:00 91 mm[facility]Hg[facility] Heart rate 2021-10-02 15:08:00 84 [facility] 2021-10-02 15:08:00 [facility]56 [facility] Body height 2021-10-02 15:08:00 [facility] weight 2021-10-02 15:08:00 [facility]874 [facility] BMI 2021-10-02 15:08:00 35.25 [facility] Heart Rate 2022-10-12 16:31:00 [facility] Systolic (mm Hg) 2022-10-12 16:31:00 Cristi rial Jose Diastolic (mm Hg) 2022-10-12 16:31:00 Mem [facility] Height 2022-10-12 16:31:00 5 [ft_i] [facility] Weight 2022-10-12 16:31:00 [facility] BMI Calculated 2022-10-12 16:31:00 Memori al Jose Height 2022-04-08 14:42:00 152.4 cm [facility] Weight 2022-04-08 14:42:00 [facility] BMI Calculated 2022-04-08 14:42:00 [facility] Heart Rate 2022-03-09 15:32:00 [facility] Systolic (mm Hg) 2022-03-09 15:32:00 Cristi rial Jose Diastolic (mm Hg) 2022-03-09 15:32:00 Mem [facility] Height 2022-03-09 15:32:00 152.4 cm [facility] Weight 2022-03-09 15:32:00 [facility] BMI Calculated 2022-03-09 15:32:00 Memori al [facility] Temperature Oral (F) 2022-02-24 01:50:00 98.4 F [facility] Heart Rate 2022-02-24 01:50:00 [facility] Respitory Rate 2022-02-24 01:50:00 Memori al Jose Systolic (mm Hg) 2022-02-24 01:50:00 Cristi rial [facility] Diastolic (mm Hg) 2022-02-24 01:50:00 [facility] Height 2022-02-23 21:06:00 152.4 cm [facility] BMI Calculated 2022-02-23 21:06:00 [facility]ori al [facility] Weight 2022-02-23 21:06:00 [facility] Systolic (mm Hg) 2022-02-23 21:06:00 Cristi rial Jose Diastolic (mm Hg) 2022-02-23 21:06:00 Mem [facility] Heart Rate 2022-02-23 21:06:00 [facility] Respitory Rate 2022-02-23 21:06:00 Memori al [place] Temperature Oral (F) 2022-02-23 21:06:00 98.9 F [facility] Temperature Oral (F) 2022-02-23 10:30:00 98.4 F [facility] Heart Rate 2022-02-23 10:30:00 [facility] Respitory Rate 2022-02-23 10:30:00 [facility]ori [facility] Systolic (mm Hg) 2022-02-23 10:30:00 Cristi rial Jose Diastolic (mm Hg) 2022-02-23 10:30:00 [facility] Temperature Oral (F) 2022-02-23 09:48:00 98.2 F [facility] Heart Rate 2022-02-23 09:48:00 [facility] Respitory Rate 2022-02-23 09:48:00 [facility]ori [facility] [place] Systolic (mm Hg) 2022-02-23 09:48:00 Cristi rial [place] Diastolic (mm Hg) 2022-02-23 09:48:00 [facility] Height 2022-02-23 07:35:00 152.4 cm [facility] BMI Calculated 2022-02-23 07:35:00 Memori al Jose Weight 2022-02-23 07:35:00 [facility] Systolic (mm Hg) 2022-02-23 07:35:00 Cristi rial [place] Diastolic (mm Hg) 2022-02-23 07:35:00 Mem orial Jose Heart Rate 2022-02-23 07:35:00 [facility] Respitory Rate 2022-02-23 07:35:00 [facility] [place] Temperature Oral (F) 2022-02-23 07:35:00 98.5 F [facility] Systolic (mm Hg) 2021-07-14 13:56:00 Cristi rial Jose Diastolic (mm Hg) 2021-07-14 13:56:00 [facility] Heart Rate 2021-07-14 13:56:00 [facility] Height 2021-07-14 13:56:00 152.4 cm [facility] Weight 2021-07-14 13:56:00 [facility] BMI Calculated 2021-07-14 13:56:00 [facility] Systolic (mm Hg) 2021-01-11 00:10:00 Cristi rial Jose Diastolic (mm Hg) 2021-01-11 00:10:00 Mem o[facility] Heart Rate 2021-01-11 00:10:00 [facility] Height 2021-01-11 00:10:00 152.4 cm [facility] Weight 2021-01-11 00:10:00 [facility] BMI Calculated 2021-01-11 00:10:00 Memori al [facility] Height 2020-06-16 14:59:00 152.4 cm [facility] Weight 2020-06-16 14:59:00 [facility] BMI Calculated 2020-06-16 14:59:00 Mem[facility] al [facility] Height 2020-05-02 01:26:00 152.4 cm [facility] Weight 2020-05-02 01:26:00 [facility] BMI Calculated 2020-05-02 01:26:00 [facility] Systolic (mm Hg) 2020-05-02 01:26:00 Cristi rial [facility] Diastolic (mm Hg) 2020-05-02 01:26:00 Mem o[facility] Jose Heart Rate 2020-05-02 01:26:00 [facility] Temperature Oral (F) 2020-05-02 01:26:00 98.5 F [facility] Height 2020-05-01 18:55:00 152.4 cm [facility] Weight 2020-05-01 18:55:00 [facility] BMI Calculated 2020-05-01 18:55:00 Memori al Jose Systolic (mm Hg) 2019-09-18 17:50:00 Cristi rial [facility] Diastolic (mm Hg) 2019-09-18 17:50:00 [facility] Heart Rate 2019-09-18 17:50:00 [facility] Temperature Oral (F) 2019-09-18 17:50:00 98.0 F [facility] Height 2019-09-18 17:50:00 149.86 cm [facility] Weight 2019-09-18 17:50:00 [facility] BMI Calculated 2019-09-18 17:50:00 Memori al Jose Systolic (mm Hg) 2019-08-28 18:10:00 Cristi rial [facility] Diastolic (mm Hg) 2019-08-28 18:10:00 Mem [facility] Heart Rate 2019-08-28 18:10:00 [facility] Respitory Rate 2019-08-28 18:10:00 [facility] Temperature Oral (F) 2019-08-28 18:10:00 99 F [facility] Height 2019-08-28 18:10:00 153.9 cm [facility] Weight 2019-08-28 18:10:00 [facility] BMI Calculated 2019-08-28 18:10:00 Memori al Jose Systolic (mm Hg) 2019-08-15 16:35:00 Cristi rial [facility]yme Diastolic (mm Hg) 2019-08-15 16:35:00 Mem orial Jose Heart Rate 2019-08-15 16:35:00 [facility] Respitory Rate 2019-08-15 16:35:00 Memori al Jose Temperature Oral (F) 2019-08-15 16:35:00 98 F [facility] Height 2019-08-15 16:35:00 149.86 cm [facility] BMI Calculated 2019-08-15 16:35:00 [facility] Weight 2019-08-15 16:35:00 [facility] Respitory Rate 2019-06-14 16:10:00 [facility] Systolic (mm Hg) 2019-06-14 16:10:00 Cristi rial Jose Diastolic (mm Hg) 2019-06-14 16:10:00 Mem o[facility] Respitory Rate 2019-06-14 15:55:00 Memori al Jose Systolic (mm Hg) 2019-06-14 15:55:00 Cristi [facility] Diastolic (mm Hg) 2019-06-14 15:55:00 Mem o[facility] Systolic (mm Hg) 2019-06-14 15:40:00 Cristi rial Jose Diastolic (mm Hg) 2019-06-14 15:40:00 [facility] Heart Rate 2019-06-14 14:45:00 [facility] Respitory Rate 2019-06-14 14:45:00 [facility] Height 2019-06-13 22:00:00 152.4 cm [facility] Weight 2019-06-13 22:00:00 [facility] BMI Calculated 2019-06-13 22:00:00 [facility] Systolic (mm Hg) 2019-06-05 16:40:00 Cristi rial Jose Diastolic (mm Hg) 2019-06-05 16:40:00 Mem [facility] Systolic (mm Hg) 2019-06-05 15:56:00 Cristi [facility] Diastolic (mm Hg) 2019-06-05 15:56:00 [facility] Heart Rate 2019-06-05 15:56:00 [facility] Temperature Oral (F) 2019-06-05 15:56:00 98.5 F [facility] Height 2019-06-05 15:56:00 149.86 cm [facility] Weight 2019-06-05 15:56:00 [facility] BMI Calculated 2019-06-05 15:56:00 [facility] BMI Calculated 2018-10-02 19:38:00 [facility] Weight 2018-10-02 19:38:00 [facility] Height 2018-10-02 19:38:00 149.86 cm [facility] Respitory Rate 2018-10-02 19:38:00 Memori al Jose Temperature Oral (F) 2018-10-02 19:38:00 98.2 F [facility] Systolic (mm Hg) 2018-10-02 19:38:00 Cristi rial Jose Diastolic (mm Hg) 2018-10-02 19:38:00 Leigh oriareli [facility] Heart Rate 2018-10-02 19:38:00 Jelly Garcia Weight 2018-09-20 16:13:00 Jelly Garcia BMI Calculated 2018-09-20 16:13:00 Jacky Russo Height 2018-09-20 16:13:00 152.4 cm Jelly Garcia Heart Rate 2018-09-20 16:13:00 Jelly Garcia Temperature Oral (F) 2018-09-20 16:13:00 98.5 F [facility] Systolic (mm Hg) 2018-09-20 16:13:00 Cristi riaclaudio [facility] Diastolic (mm Hg) 2018-09-20 16:13:00 [facility] o[facility] Procedures Procedure Date / Time Performing Clinician Source Performed PROLACTIN 2022-09-10 21:50:00 [place] Lisa [facility] CBC WITH DIFF 2022-09-10 21:50:00 [facility] POCT TEST 2022-09-10 20:15:00 Lisa Russell [facility] DISCLOSURE AND CONSENT, 2022-09-10 06:01:00 Doctor Unassigned, [facility] MEDICAL AND SURGICAL [facility] PROCEDURES POCT TEST 2022-06-09 21:27:00 Yoav Delarosa [facility] DISCLOSURE AND CONSENT, 2022-06-09 05:01:00 Doctor Unassigned, [facility] MEDICAL AND SURGICAL [facility] PROCEDURES MEASLES (RUBEOLA) ANTIBODY 2022-05-25 18:40:00 [facility] IGG MUMPS VIRUS ANTIBODY, IGG 2022-05-25 18:40:00 [facility] RUBELLA AB IGG 2022-05-25 18:40:00 [facility] ospital VARICELLA ZOSTER VIRUS AB, 2022-05-25 18:40:00 [facility] IGG COMPREHENSIVE METABOLIC 2021-10-02 00:00:00 [place] AND DIFFERENTIAL 2021-10-02 00:00:00 [facility] URINALYS[facility] WITH REFLEX 2021-10-02 00:00:00 [facility] alth MICROSCOPIC PROTEIN / CREATININE 2021-10-02 00:00:00 [facility] RATIO, URINE MITOCHONDRIAL ANTIBODY 2021-10-02 00:00:00 [facility] alth W/REFL TITER SMOOTH MUSCLE AB W/REFL 2021-10-02 00:00:00 [facility] ealt TITER COMPLEMENT COMP C3 AND C4 2021-10-02 00:00:00 [facility] SM AND SM/FINANCIAL BR[employer]ERS ANTIBODIES 2021-10-02 00:00:00 [facility] SJOGREN'S ANTIBODIES 2021-10-02 00:00:00 [facility] (SS-A,SS-B) TISSUE TRANSGLUTAMINASE 2021-10-02 00:00:00 [facility] ealt ANTIBODY, IGG,IGA DNA (DS) ANTIBODY, 2021-10-02 00:00:00 [facility] CRITHIDIA, IFA W/REFL LUPUS ANTICOAGULANT AND 2021-10-02 00:00:00 [facility] ealt CARDIOLIPIN AB PANEL WITH REFLEXES BETA 2 GLYCOPROTEIN I AB 2021-10-02 00:00:00 [facility] (IGG, IGA, IGM) SMOOTH MUSCLE AB TITER 2021-10-02 [facility] impacted cerumen 2020-05-02 00:40:00 Mem orial Jose using irrigation/lavage, unilateral section 2016-10-24 00:00:00 [facility] Breast reduction 2010-10-24 00:00:00 [facility] Plan of Care Planned Activity Planned Date Details Comments Source Future Scheduled 2022-10-08 [facility] Test 15:10:30 malignant neoplasm of cervix (procedure) [code = 140592781] Future Scheduled 2022-10-08 [facility] 15:10:30 [code = INFLUENZA VACCINE] Future Scheduled 2022-10-08 COVID-19 VACCINE ([facility] 15:10:30 - Booster for Moderna series) [code = COVID-19 VACCINE (4 - Booster for Moderna series)] Future Scheduled 2022-07-23 [facility] Test 23:33:00 malignant neoplasm of cervix (procedure) [code = 868141924] Future Scheduled 2022-07-23 [facility]ACCINE [facility] 23:33:00 [code = INFLUENZA VACCINE] Future Scheduled 2022-07-23 COVID-19 VACCINE (4 [facility] 23:33:00 - Booster for Moderna series) [code = COVID-19 VACCINE (4 - Booster for Moderna series)] Future Scheduled 2022-07-23 [facility] 23:33:00 VACCINES (1 of 3 - 3-dose series) [code = HEPATITIS B VACCINES (1 of 3 - 3-dose series)] Encounters Start End Encounter Admission Attending Care Care Encounter Source Date/Time Date/Time Type Type Clinicians Facility Department ID 2021-10-02 Outpatient [facility] [id number] [place] 10:07:42 Counts include 234 beds at the [facility] 2021-03-04 Inpatient HCAPM HCAPM [id number] [facility] 19:36:09 49 [facility] 2021-01-12 Inpatient HCAPM BHAKTI [id number] [facility] 20:45:00 91 [facility] 2021-01-09 Inpatient HCAPM HCAPM [id number] [facility] 20:45:31 61 [facility] 2020-11-22 Inpatient HCAPM BHAKTI [id number] [facility] 18:42:00 93 [facility] 2019-06-12 Outpatient MHSE MHSE [id number] 12:36:31 [facility] 2022-10-12 2022-10-13 Outpatient MHIE MHMG [id number] Memoria 16:15:00 05:59:59 Primary 21 Paige Garcia Bradshaw 2022-10-12 2022-10-12 Outpatient Elhor MHMG MHMG [id number] 10:15:00 23:59:59 Alli Cruz 2022-10-12 2022-10-12 Outpatient MHIE MHIE [id number] Memoria 10:15:00 10:15:00 21 claudio Garcia 2022-09-14 2022-09-14 Nurse NASRIN Wang 1.2.840.114 [id number] Univers 00:00:00 00:00:00 Triage Aneatrice HUMBERTO 350.1.13.10 ity of [facility] 4.2.7.2.686 Mariano as [phone] [address] 2022-09-14 2022-09-14 Telephone [facility] 1.2.840.114 [id number] Univers 00:00:00 00:00:00 Lisa COMMUNICATIONS PROGRAM MANAGER 350.1.13.10 it y of [address]686 Mariano as MATERNAL [phone] [facility] [address] [place] [address] 2022-09-10 2022-09-10 Outpatient R LISA RUSSELL [facility] [id number] Univers 13:45:00 15:51:29 LISA RUSSELL [facility] 2022-09-10 2022-09-10 Office [facility] 1.2.840.114 [id number] Univers 13:45:00 15:51:29 Visit Lisa COMMUNICATIONS PROGRAM MANAGER 350.1.13.10 it y of [address]686 Mariano as MATERNAL [phone] [facility] & [address] 2022-09-10 2022-09-10 Orders Doctor NASRIN 1.2.840.114 [id number] Univers 00:00:00 00:00:00 Only Unassigned, HUMBERTO 350.1.13.10 ity of [place] [id number] Mariano as [phone] [address] 2022-08-06 2022-08-06 Emergency EM Cecil Ojeda [facility] LA00 [id number] [facility] 18:23:00 21:25:00 29 [facility] 2022-06-24 2022-06-24 Outpatient Nellie YUAN [facility] [id number] Univers 07:45:00 07:45:00 HOLDEN knight [facility] 2022-06-09 2022-06-09 Office Pgy2 UNIVERSIT 1.2.291.532 [id number] Univers 13:45:00 16:32:01 Visit Yoav Delarosa [facility] 350.1.13.10 ity of [facility] 4.2.7.2.[place] [phone] [facility] [address] 2022-06-09 2022-06-09 Outpatient R ISAURA [facility] [id number] Univers 13:45:00 16:32:01 YOAV enrrique [facility] 2022-06-09 2022-06-09 Outpatient Nellie DELAROSA [facility] [id number] Univers 13:45:00 13:45:00 YOAV [facility] 2022-06-09 2022-06-09 Orders Doctor NASRIN 1.2.840.114 [id number] Univers 00:00:00 00:00:00 Only Unassigned, HUMBERTO 350.1.13.10 ity of [place] [facility] 4.2.7.2.686 Mariano as [phone] [facility] [address] 2022-05-27 2022-05-27 Outpatient Nellie VALENTIN [facility] [id number] Univers 12:45:00 12:45:00 ALIYA turner [facility] 2022-05-25 2022-05-25 Employee 1.2.840.1 [id number] Methodi 13:15:00 13:30:[address] 3.430.2.7 Hospit a .3.203006 l .8 2022-05-25 2022-05-25 Employee 1.2.840.1 [id number] 84660 Methodi 13:15:00 13:30:[address] 3.430.2.7 Hospit a .3.906858 l .8 2022-05-25 2022-05-25 Telephone [facility] 1.2.840.114 [id number] Univers 00:00:00 00:00:00 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 350.1.13.10 it y of [facility] 4.2.7.2.686 Mariano as MATERNAL [phone] [facility] ical & CHILD [address] [place] [address] 2022-05-24 2022-05-24 Office [facility] 1.2.765.925 [id number] Univers 07:45:00 09:30:02 Visit Holden DICK/GYN 350.1.13.10 it y [facility] 4.2.7.2.686 Mariano as MATERNAL [phone] Med ical & CHILD [address] [place] [address] 2022-05-24 2022-05-24 Outpatient Nellie YUAN [facility] [id number] Univers 07:45:00 09:30:02 HOLDEN knight [facility] 2022-05-24 2022-05-24 Outpatient Nellie YUAN [facility] [id number] Univers 07:45:00 07:45:00 HOLDEN knight [facility] 2022-05-12 2022-05-12 [facility] [id number] Univers 10:30:00 10:30:00 HOLDEN knight [facility] 2022-04-08 2022-04-09 Outpatient [facility]Flavo [facility] [id number] Memoria 13:42:00 04:59:00 nellie Garcia 67 l [facility] 2022-04-08 2022-04-08 Outpatient ELHOR SE MED [id number] MH 08:42:00 23:59:00 GBITOSemaje a AKUVI [facility] 2022-04-08 2022-04-08 Outpatient Elhor MHSE SE [id number] 08:42:00 23:59:00 Gbito, 67 Akuvi Afefa 2022-03-09 2022-03-10 [place] [id number] Memoria 15:15:00 04:59:59 r Primary 20 l [facility] 2022-03-09 2022-03-09 Outpatient Elhor MG MG [id number] 10:15:00 23:59:59 Gbito, [address] [facility] 2022-03-09 2022-03-09 Outpatient IE IE [id number] Memoria 10:15:00 10:15:00 20 claudio Lyme 2022-02-23 2022-02-24 Emergency nullFlavo [facility] [id number] Memoria 21:00:43 08:29:00 nellie Garcia 23 l [facility] 2022-02-23 2022-02-24 [place] [id number] Memoria 20:00:00 04:59:59 r Primary 19 l [facility] 2022-02-23 2022-02-24 Outpatient Isabella, SOL MHPL [id number] 16:00:43 03:29:00 Will Crawford 23 2022-02-23 2022-02-24 Emergency E ISABELLA, SARABL MHBL [id number] MHBL 16:00:00 03:29:00 WILL 2022-02-23 2022-02-23 Outpatient Elhor SARAMG MHMG [id number] 15:00:00 23:59:59 Gbito, 19 Akuvi Afefa 2022-02-23 2022-02-23 Outpatient MHIE SARAIE [id number] Memoria 15:00:00 15:00:00 19 [facility] 2022-02-23 2022-02-23 Emergency nullFlavo [facility] [id number] Memoria 07:30:39 11:30:00 r Lyme 22 l [facility] 2022-02-23 2022-02-23 Outpatient Guru, SARAPL MHPL [id number] 02:30:39 06:30:00 Huong 22 Roselia 2022-02-23 2022-02-23 Emergency E GURU, BL MHBL [id number] MHBL 02:30:00 06:30:00 HUONG 2022-02-22 2022-02-22 Emergency EM Hzang, HCAPM BHAKTI [id number] [facility] 17:40:00 19:20:00 Ngozi 38 [facility] 2022-02-22 2022-02-22 Emergency EM Zhang, HCAPM HCAPM [id number] [id number] [facility] 17:40:00 19:20:00 Ngozi [id number] [facility] 2022-02-22 2022-02-22 Ambulatory nullFlavo Urgent [id number] Memoria 14:40:00 14:40:00 Pre-Reg r Care 18 l [facility] 2022-02-22 2022-02-22 Outpatient MHIE MHIE [id number] Memoria 09:40:00 09:40:00 18 [facility] 2022-02-22 2022-02-22 Outpatient Pepe [facility] [id number] 09:40:00 09:40:00 Aurelio K 18 2022-02-10 2022-02-10 Outpatient R LISA RUSSELL [facility] [id number] Univers 10:15:00 10:51:07 LISA RUSSELL itenrrique [facility] 2022-02-10 2022-02-10 Office Holden Yuan [facility] 1.2.840. 114 [id number] Univers 10:15:00 10:51:07 Visit Lisa Russell COMMUNICATIONS PROGRAM MANAGER 350.1.13.10 ity of [facility] 4.2.7.2.686 Mariano as MATERNAL [phone] Med ical & CHILD 125 [facility] 2022-02-10 2022-02-10 Orders Doctor ALEXANDRA 1.2.840.114 [id number] Univers 00:00:00 00:00:00 Only Unassigned, HUMBERTO 350.1.13.10 ity of [place] [facility] 4.2.7.2.686 Mariano as [phone] [address] 2022-01-29 2022-01-29 Outpatient INJHIWOT [id number] Hiwot 09:00:00 09:00:00 [place] vasyl 2022-01-27 2022-01-27 Outpatient INJHIWOT [id number] Hiwot 08:30:00 08:30:00 [place] vasyl 2022-01-21 2022-01-21 Outpatient MURILLOHIWOT [id number] Hiwot 00:00:00 00:00:00 LIZZETTE anders 2021-12-17 2021-12-17 Refill Fransisco [facility] 1.2.840.114 [id number] Univers 00:00:00 00:00:00 Shane Ballard COMMUNICATIONS PROGRAM MANAGER 350.1.13.10 ity of [facility] 4.2.7.2.686 Mariano as MATERNAL [phone] Med ical & CHILD 107 [facility] 2021-12-17 2021-12-17 Telephone Fransisco NVNOEMI 1.2.541.[address] [place] [address] 00:00:00 00:00:00 Shane Ballard COMMUNICATIONS PROGRAM MANAGER 350.1.13.10 ity of [facility] 4.2.7.2.686 [place] as MATERNAL [phone] [facility] [address] [place] [address] 2021-12-16 2021-12-16 Serina [facility] 1.2.840.114 [id number] Univers 00:00:00 00:00:00 Shane Ballard COMMUNICATIONS PROGRAM MANAGER 350.1.13.10 ity of [facility] 4.2.7.2.686 Mariano as MATERNAL [phone] [facility] & CHILD [address] [place] [address] 2021-12-14 2021-12-15 Outpt Diag nullFlavo [facility] [id number] Memoria 21:18:00 05:59:00 Services r Outpatient 11 l Imaging Jose Bradshaw 2021-12-14 2021-12-14 Outpatient Gorandi, MHOIP MHOIP [id number] 15:18:00 23:59:00 [facility] 11 2021-11-21 2021-11-21 Outpatient R HOMERO [facility] [id number] [facility] 11:00:00 11:00:00 ALIYA wu [facility] 2021-10-20 2021-10-21 Outpt Diag nullFlavo [facility] [id number] Memoria 13:43:00 05:59:00 Services r Outpatient 09 l Imaging [facility] 2021-10-20 2021-10-20 Outpatient Gorandi, MHOIP MHOIP [id number] 07:43:00 23:59:00 [facility] 09 2021-10-02 2021-10-02 Office Doughem, UTP 6410 1.2.959.065 [id number] [place] 09:00:00 10:07:42 Visit Gustavo ARCE 350.1.13.58 Health 9.2.7.2.686 [id number] 2021-08-19 2021-08-19 EXT MHH OP Gogia, EXT MSRDP 1.2.840.114 1 [id number] [place] 00:00:00 00:00:00 [facility] 350.1.13.58 Health 9.2.7.2.686 [phone] [id number] 2021-08-19 2021-08-19 EXT MHH OP Gogia, EXT MSRDP 1.2.840.114 1 [id number] [place] 00:00:00 00:00:00 [facility] EAMON 350.1.13.58 [facility] 9.2.7.2.686 [id number] 2021-07-17 2021-07-19 Phone nullFlavo MHMG [id number] Memoria 15:15:47 04:59:59 Message r Primary 04 [facility] 2021-07-17 2021-07-18 Outpatient MHMG MHMG [id number] 10:15:47 23:59:59 04 2021-07-16 2021-07-17 Between nullFlavo MHMG [id number] Memoria 20:48:23 20:48:23 Visit r Primary 21 [facility] 2021-07-16 2021-07-17 Outpatient MHMG MHMG [id number] 15:48:23 15:48:23 2021-07-14 2021-07-15 Outpatient nullFlavo MHMG [id number] Memoria 13:40:00 04:59:59 r Primary 17 [facility] 2021-07-14 2021-07-14 Outpatient Elhor MHMG MHMG [id number] 08:40:00 23:59:59 Anthony, 17 Billy Gonzalez 2021-07-14 2021-07-14 Outpatient MHIE MHIE [id number] Memoria 08:40:00 08:40:00 17 [facility] 2021-04-23 2021-04-23 Outpatient Nell[facility] [id number] Univers 09:45:00 09:45:00 SHANE wu [facility] 2021-03-04 2021-03-04 Outpatient NICHOLE Saha LABRina [id number] [facility] 20:26:00 20:26:00 Pari 61 [facility] 2021-01-30 2021-01-30 Telephone [facility] 1.2.400.231 [id number] Univers 00:00:00 00:00:00 Roshunda R COMMUNICATIONS PROGRAM MANAGER 350.1.13.10 ity of [facility] 4.2.7.2.686 Mariano as MATERNAL [id number] [facility] & CHILD [address] [place] [address] 2021-01-29 2021-01-29 Office Fransisco [facility] 1.2.840.114 [id number] Univers 10:57:45 11:48:15 Visit Shane Ballard COMMUNICATIONS PROGRAM MANAGER 350.1.13.10 ity of [facility] 4.2.7.2.686 Mariano as MATERNAL [id number] [facility] & CHILD [address] [place] [address] 2021-01-29 2021-01-29 Outpatient R JADE [facility] [id number] Univers 10:45:00 10:45:00 RYANKACI ity o f [facility] 2021-01-29 2021-01-29 Orders Doctor NASRIN 1.2.840.114 [id number] Univers 00:00:00 00:00:00 Only Unassigned, HUMBERTO 350.1.13.10 ity of [place] [facility] 4.2.7.2.686 Mariano as [id number] [address] 2021-01-29 2021-01-29 Telephone [facility] 1.2.110.035 [id number] Univers 00:00:00 00:00:00 Shane Ballard COMMUNICATIONS PROGRAM MANAGER 350.1.13.10 ity of [facility] 4.2.7.2.686 Mariano as MATERNAL [id number] [facility] & CHILD [address] [place] [address] 2021-01-15 2021-01-15 Outpatient BOBO BROUSSARD [id number] Memoria 09:15:00 09:15:00 16 l Jose 2021-01-11 2021-01-11 [place] [id number] Memoria 00:10:00 04:59:59 r Primary 15 l Paige Garcia [facility] 2021-01-10 2021-01-10 Outpatient PATY Preciado [id number] 19:10:00 23:59:59 Nael Fox 2021-01-10 2021-01-10 Outpatient PATY Preciado [facility] [id number] 19:10:00 23:59:59 Abrar 15 Ruddy 2021-01-10 2021-01-10 Outpatient MHIE MHIE [id number] Memoria 19:10:00 19:10:00 15 [facility] 2020-09-10 2020-09-11 Outpt Diag nullFlavo [facility] [id number] Memoria 18:32:00 05:59:00 Services r Outpatient 05 [facility] 2020-09-10 2020-09-10 Outpatient Gogia, MHOIP MHOIP [id number] 12:32:00 23:59:00 [facility] 05 2020-06-16 2020-06-17 Outpatient nullFlavo MHMG [id number] Memoria 18:15:00 04:59:59 r Primary 14 [facility] 2020-06-16 2020-06-16 Outpatient Elhor MHMG MG [id number] 13:15:00 23:59:59 Anthony, 14 [facility] 2020-06-16 2020-06-16 [place] [id number] Memoria 15:00:00 15:00:00 Pre-Reg r Primary 13 [facility] 2020-06-16 2020-06-16 Outpatient MHIE MHIE [id number] Memoria 13:15:00 13:15:00 14 [facility] 2020-06-16 2020-06-16 Outpatient MHIE MHIE [id number] Memoria 10:00:00 10:00:00 13 [facility] 2020-06-16 2020-06-16 Outpatient Elhor MHMG MHMG [id number] 10:00:00 10:00:00 Anthony, 13 [facility] 2020-05-07 2020-05-09 Phone nullFlavo MHMG [id number] Memoria 20:42:19 04:59:59 Message r Primary 03 [facility] 2020-05-07 2020-05-09 Phone nullFlavo MHMG [id number] Memoria 20:17:22 04:59:59 Message r Primary 02 [facility] 2020-05-07 2020-05-08 Outpatient MHMG MHMG [id number] 15:42:19 23:59:59 03 2020-05-07 2020-05-08 Outpatient MHMG MHMG [id number] 15:17:22 23:59:59 02 2020-05-07 2020-05-08 Outpatient nullFlavo MHMG [id number] Memoria 20:00:00 04:59:59 r Primary 12 l [facility] 2020-05-07 2020-05-07 Outpatient Elhor MHMG MHMG [id number] 15:00:00 23:59:59 Gbito, 12 Akuvi 2020-05-07 2020-05-07 Outpatient MHIE MHIE [id number] Memoria 15:00:00 15:00:00 12 claudio Lyme 2020-05-02 2020-05-02 Ambulatory nullFlavo MHMG [id number] Memoria 18:30:00 18:30:00 Pre-Reg r Primary 08 l [facility] 2020-05-02 2020-05-02 Outpatient MHIE MHIE [id number] Memoria 13:30:00 13:30:00 08 claudio Lyme 2020-05-02 2020-05-02 Outpatient Elhor MHMG MG [id number] 13:30:00 13:30:00 Gbito, 08 [facility] 2020-05-02 2020-05-02 Outpatient MHIE MHIE [id number] Memoria 11:30:00 11:30:00 10 [facility] 2020-05-02 2020-05-02 Outpatient nullFlavo MH Urgent [id number] Memoria 00:40:00 04:59:59 r Care Clear 11 claudio [facility] 2020-05-01 2020-05-01 Outpatient Matias, MG MG [id number] 19:40:00 23:59:59 Aman 11 2020-05-01 2020-05-01 Outpatient MHIE MHIE [id number] Memoria 19:40:00 19:40:00 11 [facility] 2020-05-01 2020-05-01 Ambulatory nullFlavo MHMG [id number] Memoria 19:15:00 19:15:00 Pre-Reg r Primary 09 l [facility] 2020-05-01 2020-05-01 Outpatient MHIE MHIE [id number] Memoria 14:15:00 14:15:00 09 [facility] 2020-05-01 2020-05-01 Outpatient Elhor MG MG [id number] 14:15:00 14:15:00 Gbito, 09 Akuvi 2020-01-31 2020-02-02 Phone nullFlavo MHMG [id number] Memoria 14:18:36 04:59:59 Message r Primary 01 [facility] 2020-01-31 2020-02-01 Outpatient MHMG MHMG [id number] 09:18:36 23:59:59 01 2020-01-30 2020-02-01 Phone nullFlavo MHMG [id number] Memoria 15:30:05 04:59:59 Message r Primary 00 [facility] 2020-01-30 2020-01-31 Outpatient MHMG MHMG [id number] 10:30:05 23:59:59 00 2020-01-30 2020-01-31 Between nullFlavo MHMG [id number] Memoria 16:05:23 16:05:23 Visit r Primary 16 [facility] 2020-01-30 2020-01-31 Outpatient MHMG MHMG [id number] 11:05:23 11:05:23 16 2020-01-30 2020-01-31 Outpatient nullFlavo MHMG [id number] Memoria 18:15:00 04:59:59 r Primary 07 [facility] 2020-01-30 2020-01-30 Outpatient Joaquin, MHMG MHMG [id number] 13:15:00 23:59:59 Shelley 07 Jyotindra 2020-01-30 2020-01-30 Ambulatory nullFlavo MHMG [id number] Memoria 18:15:00 18:15:00 Pre-Reg r Primary 06 [facility] 2020-01-30 2020-01-30 Ambulatory nullFlavo MHMG [id number] Memoria 18:15:00 18:15:00 Pre-Reg r Primary 05 [facility] 2020-01-30 2020-01-30 Outpatient MHIE MHIE [id number] Memoria 13:15:00 13:15:00 07 [facility] 2020-01-30 2020-01-30 Outpatient MHIE MHIE [id number] Memoria 13:15:00 13:15:00 05 [facility] 2020-01-30 2020-01-30 Outpatient MHIE MHIE [id number] Memoria 13:15:00 13:15:00 06 [facility] 2020-01-30 2020-01-30 Outpatient Elhor MHMG MHMG [id number] 13:15:00 13:15:00 Gbito, 06 Akuvi 2020-01-30 2020-01-30 Outpatient Elhor MHMG MHMG [id number] 13:15:00 13:15:00 Gbito, 05 Akuvi 2019-10-04 2019-10-05 Between nullFlavo MG [id number] Memoria 21:47:28 21:47:28 Visit r Primary 13 [facility] 2019-10-04 2019-10-05 Outpatient MHMG MHMG [id number] 15:47:28 15:47:28 13 2019-10-03 2019-10-04 Outpt Diag nullFlavo [facility] [id number] Memoria 15:53:00 05:59:00 Services r Outpatient 04 [facility] 2019-10-03 2019-10-03 Outpatient Elhor 2.16.840. 2.16.840.1. 4 [id number] 09:53:00 23:59:00 Anthony, [id number]. [id number] 04 Akuvi 3.615.36 5.36 2019-08-28 2019-09-27 Recurring nullFlavo [facility] [id number] Memoria 17:53:00 05:59:[address] [place] [address] 2019-08-28 2019-09-26 Outpatient Apostolidou [facility] [id number] 11:53:00 23:59:00 , Effrosyni 00 2019-09-25 2019-09-26 Between nullFlavo MG [id number] Memoria 20:36:32 20:36:32 Visit r Primary 12 [facility] 2019-09-25 2019-09-26 Outpatient MHMG MHMG [id number] 14:36:32 14:36:32 12 2019-09-25 2019-09-26 Outpt Diag nullFlavo [facility] [id number] Memoria 15:43:00 05:59:00 Services r Outpatient 01 [facility] 2019-09-25 2019-09-25 Outpatient Elhor MHOIP MHOIP [id number] 09:43:00 23:59:00 Gbito, Akuv2019-09-19 2019-09-20 Between nullFlavo MG [id number] Memoria 19:02:50 19:02:50 Visit r Primary 11 [facility] 2019-09-19 2019-09-20 Outpatient MHMG MHMG [id number] 13:02:50 13:02:50 11 2019-09-18 2019-09-19 Outpatient nullFlavo MHMG [id number] Memoria 17:30:00 05:59:59 r Primary 04 [facility] 2019-09-18 2019-09-18 Outpatient Elhor MHMG MG [id number] 11:30:00 23:59:59 [facility] 2019-09-18 2019-09-18 Outpatient MHIE MHIE [id number] Memoria 11:30:00 11:30:00 04 [facility] 2019-09-03 2019-09-03 [place] [id number] Memoria 17:00:00 17:00:00 Pre-Reg r Primary 03 [facility] 2019-09-03 2019-09-03 Outpatient MHIE MHIE [id number] Memoria 11:00:00 11:00:00 03 [facility] 2019-09-03 2019-09-03 Outpatient Joaquin, MHMG MG [id number] 11:00:00 11:00:00 Shelley 03 Archietheo 2019-08-28 2019-08-28 Outpatient [facility] [id number] [facility] 11:53:00 11:53:00 2019-08-15 2019-08-15 Emergency nullFlavo [facility] [id number] Memoria 16:26:39 19:57:00 [facility] [address] [facility] 2019-08-15 2019-08-15 Outpatient Vishnyakova MHPL MHPL [id number] 11:26:39 14:57:00 Marylu 09 2019-08-15 2019-08-15 Emergency E MHBL MHBL [id number] MHBL 11:26:00 11:26:00 2019-06-27 2019-06-28 Between nullFlavo MG [id number] Memoria 17:30:03 17:30:03 Visit r Primary 08 [facility] 2019-06-27 2019-06-28 Outpatient MHMG MHMG [id number] 12:30:03 12:30:03 08 2019-06-14 2019-06-14 Bedded nullFlavo [facility] [id number] Memoria 14:01:00 16:24:00 Outpatient r Lyme 06 [facility] 2019-06-14 2019-06-14 Outpatient Gogia, MHSE MHSE [id number] 09:01:00 11:24:00 [facility] 06 2019-06-07 2019-06-08 Between nullFlavo MHMG [id number] Memoria 21:51:53 21:51:53 Visit r Primary 04 l [facility] 2019-06-07 2019-06-08 Between nullFlavo MHMG [id number] Memoria 21:43:06 21:43:06 Visit r Primary 03 [facility] 2019-06-07 2019-06-08 Outpatient MHMG MHMG [id number] 16:51:53 16:51:53 04 2019-06-07 2019-06-08 Outpatient MHMG MHMG [id number] 16:43:06 16:43:06 03 2019-06-05 2019-06-06 [place] [id number] Memoria 16:00:00 04:59:59 r Primary 02 l [facility] 2019-06-05 2019-06-05 Outpatient Joaquin, MHMG MHMG [id number] 11:00:00 23:59:59 Shelley 02 Edward 2019-06-05 2019-06-05 Outpatient MHIE MHIE [id number] Memoria 11:00:00 11:00:00 02 claudio Lyme 2018-10-02 2018-10-03 [place] [id number] Memoria 19:30:00 05:59:59 r Primary 01 [facility] 2018-10-02 2018-10-03 [place] [id number] Memoria 20:36:00 05:59:00 Services r Outpatient 00 l [facility] 2018-10-02 2018-10-02 Outpatient Elhor MHMG MG [id number] 13:30:00 23:59:59 Robin Cruz 2018-10-02 2018-10-02 Outpatient Elhor MHOIP MHOIP [id number] 14:36:00 23:59:00 [place], [place] 2018-10-02 2018-10-02 Outpatient BOBO ANTONIO [id number] Memoria 13:30:00 13:30:00 01 claudio Garcia 2018-09-20 2018-09-21 Outpatient nullFlavo [facility] [id number] Memoria 16:30:00 05:59:59 r Primary 00 l Paige Lyme [facility] 2018-09-20 2018-09-20 Outpatient Joaquin, [facility] [id number] 10:30:00 23:59:59 Shelley 00 Jeber 2018-09-20 2018-09-20 Outpatient BOBO ANTONIO [id number] Memoria 10:30:00 10:30:00 00 claudio NelsonLyme Results Test Description Test Time Test Comments Results Result Comments Source IMMUNOLOGY 2022-10-12 16:56:00 Test Item Value Reference Range Interpretation Comme nts POC COVID-19 Antigen (test code = POC Not Detected *NA*(10/12/22 10 :56 AM) COVID-19 Antigen) [facility] [id number] 20:15:00 Test Item Value Reference Range Interpretation Comments POCT PREG (test code = 1605) Negative On board controls acceptable with C Yes Line (test code = 3574) POCT PREG LOT # (test code = 3575) POCT PREG TEST DATE (test code = 3576) [facility] [id number] 20:15:00 Test Item Value Reference Range Interpretation Comments POCT PREG (test code = 1605) Negative On board controls acceptable with C Yes Line (test code = 3574) POCT PREG LOT # (test code = 3575) POCT PREG TEST DATE (test code = 3576) [facility] [id number] 20:15:00 Test Item Value Reference Range Interpretation Comments POCT PREG (test code = 1605) Negative On board controls acceptable with C Yes Line (test code = 3574) POCT PREG LOT # (test code = 3575) POCT PREG TEST DATE (test code = 3576) [facility] [id number] 19:36:00 Test Item Value Reference Range Interpretation Comments UA COLOR (test code = YELLOW discript YEL/STRAW COLU) UA APPEARANCE (test code HAZY discript CLEAR A = APPU) UA GLUCOSE DIPSTICK (test NEGATIVE mg/dL NEG code = DGLUU) UA BILIRUBIN DIPSTICK 1+ mg/dL NEG A (test code = BILU) UA KETONE DIPSTICK (test TRACE mg/dL NEG code = KETU) UA SPECIFIC GRAVITY (test 1.020 SG 1.005-1.030 code = SGU) UA BLOOD DIPSTICK (test 3+ mg/DL NEG A code = MELIDA) UA PH DIPSTICK (test code 6.0 pH UNITS 5.0-7.0 = FELA) UA PROTEIN DIPSTICK (test TRACE mg/dL NEG A code = PROU) UA UROBILINIOGEN DIPSTICK 0.2 mg/dL <2.0 (test code = URO) UA NITRITE DIPSTICK (test NEGATIVE SCREEN NEG code = DYLAN) UA LEUKOCYTE ESTERASE 2+ Leuk/mcL NEGATIVE A DIPSTICK (test code = LEUU) UA CULTURE NEEDED? (test NO, WBC<10 Criteria Culture CHK code = UACULT) UA WBC (test code = WBCU) 5-10 #WBC/HPF 0-3 A UA RBC (test code = RBCU) >100 #RBC/HPF 0-3 A UA BACTERIA (test code = TRACE /HPF NONE-TRACE BACU) UA SQUAMOUS CELLS (test TRACE /HPF NONE code = SQU) Indication for culture: Flank PainBASIC METABOLIC [id number] 19:29:00 Test Item Value Reference Range Interpretation Comments SODIUM (test code = NA) 141 mmol/L 134-147 N POTASSIUM (test code = 3.8 mmol/L 3.4-5.0 N K) CHLORIDE (test code = 106 mmol/L 100-108 N CL) CARBON DIOXIDE (test 30 mmol/L 21-32 N code = CO2) ANION GAP (test code = 5.0 GAP calc 4.0-15.0 N GAP) GLUCOSE (test code = 121 MG/DL 70-110 H GLU) BLOOD UREA NITROGEN 10 MG/DL 7-18 N (test code = BUN) GLOMERULAR FILTRATION >=60 max estimate >60 RATE (test code = GFR) estGFR CREATININE (test code = 0.9 MG/DL 0.6-1.0 N CREAT) CALCIUM (test code = CA) 8.3 MG/DL 8.5-10.1 L HEPATIC FUNCTION [id number] 19:29:00 Test Item Value Reference Range Interpretation Comments TOTAL PROTEIN (test code = PROT) 7.5 G/DL 6.4-8.2 N ALBUMIN (test code = ALB) 3.6 G/DL 3.4-5.0 N BILIRUBIN TOTAL (test code = 0.30 MG/DL 0.2-1.2 N BILT) BILIRUBIN DIRECT (test code = < 0.10 MG/DL 0.00-0.30 N BILD) BILIRUBIN INDIRECT (test code = 0.20 MG/DL 0.2-1.2 N BILIND) SGOT/AST (test code = AST) 33 Unit/L 15-37 N SGPT/ALT (test code = ALT) 71 Unit/L 12-78 N ALKALINE PHOSPHATASE TOTAL (test 115 Unit/L 45-117 N code = ALKP) [id number] 19:29:00 Test Item Value Reference Range Interpretation Comments LIPASE (test code = LIP) 89 Unit/L 114-286 L CBC W/AUTO [id number] 19:22:00 Test Item Value Reference Range Interpretation Comments WHITE BLOOD CELL (test code = 7.7 K/mm3 3.5-11.0 N WBC) RED BLOOD CELL (test code = 4.36 M/mm3 4.70-6.10 L RBC) HEMOGLOBIN (test code = HGB) 13.2 G/DL 10.4-14.9 N HEMATOCRIT (test code = HCT) 38.3 % 31.5-44.1 N MEAN CELL VOLUME (test code = 87.8 Fl 84.5-98.6 N MCV) MEAN CELL HGB (test code = MCH) 30.3 pg 27.0-34.2 N MEAN CELL HGB CONCETRATION 34.5 G/DL 31.5-34.0 H (test code = MCHC) RED CELL DISTRIBUTION WIDTH 12.1 SD 11.5-14.5 N (test code = RDW) PLATELET COUNT (test code = 248 K/mm3 150-450 N PLT) MEAN PLATELET VOLUME (test code 11.60 fL 7.0-10.5 H = MPV) NEUTROPHIL % (test code = NT%) 66.2 % 40-76 N IMMATURE GRANULOCYTE % (test 0.3 % 0.0-5.0 N code = IG%) LYMPHOCYTE % (test code = LY%) 26.4 % 20.5-51.1 N MONOCYTE % (test code = MO%) 5.9 % 1.7-9.3 N EOSINOPHIL % (test code = EO%) 0.9 % 0.0-6.0 N BASOPHIL % (test code = BA%) 0.3 % 0.0-2.0 N NUCLEATED RBC % (test code = 0.0 /100WBC% 0.0-1.0 N NRBC%) NEUTROPHIL # (test code = NT#) 5.1 K/mm3 1.8-7.6 N IMMATURE GRANULOCYTE # (test 0.02 x10 3/uL 0.00-0.03 N code = IG#) LYMPHOCYTE # (test code = LY#) 2.0 K/mm3 0.6-3.2 N MONOCYTE # (test code = MO#) 0.5 K/mm3 0.3-1.1 N EOSINOPHIL # (test code = EO#) 0.1 K/mm3 0.0-0.4 N BASOPHIL # (test code = BA#) 0.0 K/mm3 0.0-0.1 N NUCLEATED RBC # (test code = 0.0 K/mm3 0.0-0.1 N NRBC#) MANUAL DIFF REQUIRED (test code NO DIFF/SCN CRITERIA = MDIFF) HCG [id number] 19:22:00 Test Item Value Reference Range Interpretation Comments HCG SERUM (test < 1 mi-IU/ML 0-6 N 0 - 6 NOT P REGNANT > 6 code = HCG) SUGGESTIVE OF E CHONG RISES TWO FOLD EVERY 2 DAYS; S UGGEST RECONFIRMING AF TER 2 DAYS. 150,000-2 [address] TRIMESTER 10 ,000 - 50,000 2ND & 3R D TRIMESTER POCT [id number] 21:28:00 Test Item Value Reference Range Interpretation Comments POCT PREG (test code = 1605) Negative On board controls acceptable with C Yes Line (test code = 3574) POCT PREG LOT # (test code = 3575) POCT PREG TEST DATE (test code = 3576) Lab Interpretation (test code = Normal 39901-1) [facility] [id number] 14:45:00 Test Item Value Reference Range Interpretation Comments U Preg (test code = U Negative (04/08/22 9:45 Preg) AM) [facility] [id number] 23:22:00 Test Item Value Reference Range Interpretation Comments HS Troponin I 1 Hr (test code = HS no gt Troponin I 1 Hr) [facility] [id number] 23:22:00 Test Item Value Reference Range Interpretation Comments HS Troponin I 0 to 1 Hour Delta (test no gt code = HS Troponin I 0 to 1 Hour Delta) [facility] [id number] 21:37:00 Test Item Value Reference Range Interpretation Comments HS Troponin I Baseline (test code = HS no gt Troponin I Baseline) [facility] [id number] 21:37:00 Test Item Value Reference Range Interpretation Comments Glucose Lvl (test code = Glucose Lvl) 106 70-99 [facility] [id number] 21:37:00 Test Item Value Reference Range Interpretation Comments BUN (test code = BUN) 9 7-22 [facility] [id number] 21:37:00 Test Item Value Reference Range Interpretation Comments Creatinine Lvl (test code = Creatinine 0.83 0.50-1.40 Lvl) [facility] [id number] 21:37:00 Test Item Value Reference Range Interpretation Comments Sodium Lvl (test code = Sodium Lvl) 136 135-145 [facility] [id number] 21:37:00 Test Item Value Reference Range Interpretation Comments Potassium Lvl (test code = Potassium 3.3 3.5-5.1 Lvl) [facility] [id number] 21:37:00 Test Item Value Reference Range Interpretation Comments Chloride Lvl (test code = Chloride Lvl) 104 95-109 [facility] [id number] 21:37:00 Test Item Value Reference Range Interpretation Comments CO2 (test code = CO2) 24 24-32 [facility] [id number] 21:37:00 Test Item Value Reference Range Interpretation Comments Calcium Lvl (test code = Calcium Lvl) 9.0 8.5-10.5 [facility]villeSpringbotJEREM[place] [id number] 21:37:00 Test Item Value Reference Range Interpretation Comments Total Protein (test code = Total 7.9 6.4-8.4 Protein) [place] [address]-05-03 21:37:00 Test Item Value Reference Range Interpretation Comments Albumin Lvl (test code = Albumin Lvl) 4.0 3.5-5.0 [place] [address]-05-03 21:37:00 Test Item Value Reference Range Interpretation Comments ALT (test code = ALT) 95 See_Comment [Auto mated message] The system which ge nerated this result transmit ramon reference range : <=65. The reference range was not used to interpr et this result as earnestine l/abnormal. [facility] [id number] 21:37:00 Test Item Value Reference Range Interpretation Comments AST (test code = AST) 41 See_Comment [Auto mated message] The system which ge nerated this result transmit ramon reference range : <=37. The reference range was not used to interpr et this result as earnestine l/abnormal. [facility] [id number] 21:37:00 Test Item Value Reference Range Interpretation Comments Alk Phos (test code = Alk Phos) 67 39-136 [facility] [id number] 21:37:00 Test Item Value Reference Range Interpretation Comments Bili Total (test code = Bili Total) 0.6 0.2-1.3 [facility] [id number] 21:37:00 Test Item Value Reference Range Interpretation Comments AGAP (test code = AGAP) 11.3 10.0-20.0 [facility] [id number] 21:37:00 Test Item Value Reference Range Interpretation Comments B/C Ratio (test code = B/C Ratio) 11 1 6-25 [facility] [id number] 21:37:00 Test Item Value Reference Range Interpretation Comments Globulin (test code = Globulin) 3.9 2.7-4.2 [facility] [id number] 21:37:00 Test Item Value Reference Range Interpretation Comments A/G Ratio (test code = A/G Ratio) 1.0 1 0.7-1.6 [facility]2022-05-03 21:37:00 Test Item Value Reference Range Interpretation Comments eGFR (test code = eGFR) 92 [place] [id number] 21:37:00 Test Item Value Reference Range Interpretation Comments S Preg (test code = S Negative *NA*(02/23/22 Preg) 4:37 PM) [place] [id number] 21:37:00 Test Item Value Reference Range Interpretation Comments Segs (test code = Segs) 67.7 45.0-75.0 [place] [address]-05-03 21:37:00 Test Item Value Reference Range Interpretation Comments Lymphocytes (test code = Lymphocytes) 23.7 20.0-40.0 [place] [address]-05-03 21:37:00 Test Item Value Reference Range Interpretation Comments Monocytes (test code = Monocytes) 7.4 2.0-12.0 [place] 696972-05-03 21:37:00 Test Item Value Reference Range Interpretation Comments Eosinophils (test code = 0.5 See_Comment [A utomated message] The Eosinophils) system which ge nerated this result tra nsmitted reference range : <=4.0. The reference r yadira was not used to int erpret this result as normal/abnormal . [place] [address]-05-03 21:37:00 Test Item Value Reference Range Interpretation Comments Basophils (test code = 0.7 See_Comment [Aut omated message] The Basophils) system which ge nerated this result tra nsmitted reference range : <=1.0. The reference r yadira was not used to int erpret this result as normal/abnormal . [place] 696972-05-03 21:37:00 Test Item Value Reference Range Interpretation Comments Neutrophils # (test code = Neutrophils 4.4 1.5-8.1 #) [place] [address]-05-03 21:37:00 Test Item Value Reference Range Interpretation Comments Lymphocytes # (test code = Lymphocytes 1.6 1.0-5.5 #) [place] [address]-05-03 21:37:00 Test Item Value Reference Range Interpretation Comments Monocytes # (test code 0.5 See_Comment [Aut omated message] The = Monocytes #) system which generated this result tra nsmitted reference range : <=0.8. The reference r yadira was not used to int erpret this result as normal/abnormal . [place] [address]-05-03 21:37:00 Test Item Value Reference Range Interpretation Comments WBC (test code = WBC) 6.6 3.7-10.4 [place] [address]-05-03 21:37:00 Test Item Value Reference Range Interpretation Comments RBC (test code = RBC) 4.56 4.20-5.40 [place] [address]-05-03 21:37:00 Test Item Value Reference Range Interpretation Comments Hgb (test code = Hgb) 14.1 12.0-16.[address]05-03 21:37:00 Test Item Value Reference Range Interpretation Comments Hct (test code = Hct) 40.9 36.0-48.[address]05-03 21:37:00 Test Item Value Reference Range Interpretation Comments MCV (test code = MCV) 89.5 80.0-98.0 [place] [address]-05-03 21:37:00 Test Item Value Reference Range Interpretation Comments MCH (test code = MCH) 30.9 pg 27.0-31.0 [place] [address]-05-03 21:37:00 Test Item Value Reference Range Interpretation Comments MCHC (test code = MCHC) 34.5 32.0-36.0 [place] [address]-05-03 21:37:00 Test Item Value Reference Range Interpretation Comments RDW (test code = RDW) 12.9 11.5-14.5 [place] [address]-05-03 21:37:00 Test Item Value Reference Range Interpretation Comments Platelet (test code = Platelet) 236 133-450 [place] [address]-05-03 21:37:00 Test Item Value Reference Range Interpretation Comments MPV (test code = MPV) 9.4 7.4-10.4 [place] 848802-05-03 08:46:00 Test Item Value Reference Range Interpretation Comments Glucose Lvl (test code = Glucose Lvl) 108 70-99 [place] 848802-05-03 08:46:00 Test Item Value Reference Range Interpretation Comments BUN (test code = BUN) 10 7-22 [place] 848802-05-03 08:46:00 Test Item Value Reference Range Interpretation Comments Creatinine Lvl (test code = Creatinine 0.78 0.50-1.40 Lvl) [place] 848802-05-03 08:46:00 Test Item Value Reference Range Interpretation Comments Sodium Lvl (test code = Sodium Lvl) 135 135-145 [place] [address]-05-03 08:46:00 Test Item Value Reference Range Interpretation Comments Potassium Lvl (test code = Potassium 3.8 3.5-5.1 Lvl) [address]05-03 08:46:00 Test Item Value Reference Range Interpretation Comments Chloride Lvl (test code = Chloride Lvl) 106 95-109 [place] [address]-05-03 08:46:00 Test Item Value Reference Range Interpretation Comments CO2 (test code = CO2) 22 24-32 [place] 848802-05-03 08:46:00 Test Item Value Reference Range Interpretation Comments Calcium Lvl (test code = Calcium Lvl) 8.9 8.5-10.5 [place] [address]-05-03 08:46:00 Test Item Value Reference Range Interpretation Comments AGAP (test code = AGAP) 10.8 10.0-20.0 [place] [address]-05-03 08:46:00 Test Item Value Reference Range Interpretation Comments eGFR (test code = eGFR) 100 [place] [address]-05-03 08:46:00 Test Item Value Reference Range Interpretation Comments WBC (test code = WBC) 6.3 3.7-10.4 [place] [address]-05-03 08:46:00 Test Item Value Reference Range Interpretation Comments RBC (test code = RBC) 4.54 4.20-5.[address]05-03 08:46:00 Test Item Value Reference Range Interpretation Comments Hgb (test code = Hgb) 14.1 12.0-16.[address]05-03 08:46:00 Test Item Value Reference Range Interpretation Comments Hct (test code = Hct) 40.6 36.0-48.[address]05-03 08:46:00 Test Item Value Reference Range Interpretation Comments MCV (test code = MCV) 89.4 80.0-98.[address]05-03 08:46:00 Test Item Value Reference Range Interpretation Comments MCH (test code = MCH) 30.9 pg 27.0-31.0 [place] [address]-05-03 08:46:00 Test Item Value Reference Range Interpretation Comments MCHC (test code = MCHC) 34.6 32.0-36.0 [place] [address]-05-03 08:46:00 Test Item Value Reference Range Interpretation Comments RDW (test code = RDW) 12.9 11.5-14.[address]05-03 08:46:00 Test Item Value Reference Range Interpretation Comments Platelet (test code = Platelet) 227 133-450 [place] [address]-05-03 08:46:00 Test Item Value Reference Range Interpretation Comments MPV (test code = MPV) 9.9 7.4-10.4 [place] [address]-05-03 08:46:00 Test Item Value Reference Range Interpretation Comments Segs (test code = Segs) 69.2 45.0-75.[address]05-03 08:46:00 Test Item Value Reference Range Interpretation Comments Lymphocytes (test code = Lymphocytes) 22.3 20.0-40.[address]05-03 08:46:00 Test Item Value Reference Range Interpretation Comments Monocytes (test code = Monocytes) 7.5 2.0-12.0 [place] [address]-05-03 08:46:00 Test Item Value Reference Range Interpretation Comments Eosinophils (test code = 0.6 See_Comment [A utomated message] The Eosinophils) system which ge nerated this result tra nsmitted reference range : <=4.0. The reference r yadira was not used to int erpret this result as normal/abnormal . [address]05-03 08:46:00 Test Item Value Reference Range Interpretation Comments Basophils (test code = 0.4 See_Comment [Aut omated message] The Basophils) system which ge nerated this result tra nsmitted reference range : <=1.0. The reference r yadira was not used to int erpret this result as normal/abnormal . [id number] 08:46:00 Test Item Value Reference Range Interpretation Comments Neutrophils # (test code = Neutrophils 4.3 1.5-8.1 #) [id number] 08:46:00 Test Item Value Reference Range Interpretation Comments Lymphocytes # (test code = Lymphocytes 1.4 1.0-5.5 #) [id number] 08:46:00 Test Item Value Reference Range Interpretation Comments Monocytes # (test code 0.5 See_Comment [Aut omated message] The = Monocytes #) system which generated this result tra nsmitted reference range : <=0.8. The reference r yadira was not used to int erpret this result as normal/abnormal . [facility] RFLX MICR CULT IF [id number] 18:47:00 Test Item Value Reference Range Interpretation Comments UA COLOR (test code = BLOODY discript YEL/STRAW A COLU) UA APPEARANCE (test code HAZY discript CLEAR A = APPU) UA GLUCOSE DIPSTICK (test NEGATIVE mg/dL NEG code = DGLUU) UA BILIRUBIN DIPSTICK NEGATIVE mg/dL NEG (test code = BILU) UA KETONE DIPSTICK (test NEGATIVE mg/dL NEG code = KETU) UA SPECIFIC GRAVITY (test <=1.005 SG 1.005-1.030 code = SGU) UA BLOOD DIPSTICK (test 3+ mg/DL NEG A code = MELIDA) UA PH DIPSTICK (test code 7.0 pH UNITS 5.0-7.0 = FELA) UA PROTEIN DIPSTICK (test TRACE mg/dL NEG A code = PROU) UA UROBILINIOGEN DIPSTICK 0.2 mg/dL <2.0 (test code = URO) UA NITRITE DIPSTICK (test NEGATIVE SCREEN NEG code = DYLAN) UA LEUKOCYTE ESTERASE NEGATIVE Leuk/mcL NEGATIVE DIPSTICK (test code = LEUU) UA CULTURE NEEDED? (test NO, WBC<10 Criteria Culture CHK code = UACULT) UA WBC (test code = WBCU) 1-3 #WBC/HPF 0-3 UA RBC (test code = RBCU) 40-50 #RBC/HPF 0-3 A UA BACTERIA (test code = TRACE /HPF NONE-TRACE BACU) UA SQUAMOUS CELLS (test TRACE /HPF NONE code = SQU) Indication for culture: Dysuria/FrequencyUR HCG [id number] 18:47:00 Test Item Value Reference Range Interpretation Comments UR HCG QUAL (test code = HCGQLU) NEGATIVE NEGATIVE Indication for culture: Dysuria/FrequencyDNA (DS) ANTIBODY, CRITHIDIA, IFA [id number] 05:00:00 Test Item Value Reference Range Interpretation Comments DNA AB (DS) NEGATIVE NEGATIVE REPORT CRITHIDIA,IFA COMMENT:FASTIN G:NO (test code = 6457-6) RAC (test code Performing = RAC) Organization Information: ? ?Site ID: EZ ? ?Name: [facility] ? ?Address: [address] [place] [phone] ? ?Director: MARCO VELEZ MD,PHD,VASHTI [facility] ANTICOAGULANT AND CARDIOLIPIN AB PANEL WITH [id number] 03:00:00 Test Item Value Reference Interpretation Comments Range LUPUS SEE NOTE NOT DETECTED A Lupus Anticoa gulant is ANTICOAGULANT NOT DETECTED. This (test code = [place] [address]-8) basedon the fol [facility] test results: PTT-LA SCREEN See_Comment For more info rmation on (test code = this test, go 11141-8) to:http://educa tion.ques tdiagnostics.co m/faq/FAQ 01v2(This link is being provided for informational/e ducationa lpurposes only. ) [Automated mess age] The system which nerated this result tra nsmitted reference range : < OR = 40 seconds. The reference range was not used to interpr et this result as normal/abnormal . DRVVT SCREEN See_Comment [Automated mes eugenio] The (test code = system which ge nerated 6303-2) this result tra nsmitted reference range : < OR = 45 seconds. The reference range was not used to interpr et this result as normal/abnormal . CARDIOLIPIN AB <2.0 APL-U/mL (IGA) (test code = 5076-5) CARDIOLIPIN AB <2.0 GPL-U/mL (IGG) (test code = 3181-5) CARDIOLIPIN AB <2.0 MPL-U/mL The antiphosp holipid (IGM) (test code antibody sy ndrome (APS) = 3182-3) is aclinical-pa thologic correlation cris t includes a clin icalevent (e.g. arterial or venous thrombosis, pregnancymorbid ity) and persistent posi tive antiphospholipi dantibodi es (IgM or IgG CHRIS >40 MPL/GPL-U/mL, I gM or IgGanti-b2GPI a ntibodies or a lupus anticoagulant). Internati onal consensus guidelines for APS suggest waiting at least 12 weeks before retesting to co nfirm antibodypersist jewel. The Systemic Lupus International CollaboratingCl inics immunological classification criteria for systemiclup us erythematosus ( SLE) include testing for isotype IgA,whi ch has yet to be incor porated into APS criter ia. Lowlevel antiphospholipi d antibodies may sometimes be detectedin t he setting of infe ction, drug therapy or aging. For additional information, pl ease refer tohttp://educat ion.[employer] /faq/FAQ1 09(This link is being provided for informational/e ducationa lpurposes only. ) Cardiolipin Ab (IgA) Value ?Interpretation ----- ? <20.0 ?Antibody not detected> or = 20.0 ?Antibody detec ramon Cardiolipin Ab (IgG) Value ?Interpretation ----- ? --<20.0 ?Antibody n ot detected> or = 20.0 ?Antibody detec ramon Cardiolipin Ab (IgM) Value ?Interpretation ----- ? --<20.0 ?Antibody n ot detected> or = 20.0 ?Antibody detec ramon RAC (test code = Performing RAC) Organization Information: ? ?Site ID: EZ ? ?Name: [facility] ? ?Address: [address] [place] [phone] ? ?Director: MARCO VELEZ MD,PHD, VASHTI [facility] MUSCLE AB [id number] 05:00:00 Test Item Value Reference Range Interpretation Comments SMOOTH MUSCLE AB 1:20 See_Comment H REPORT TITER (test code = COMMENT:Dorcas ORDOÑEZ:Shasha 5358-7) O [Automated message] The system which generated this result transmitted reference range : <1:20 titer. Th e reference range was not used to interpret this result as normal/abnormal . RAC (test code = Performing RAC) Organization Information: ? ?Site ID: EN ? ?[facility] ? ?Address: [address] [place] [address] ? ?Director: SAMMI GUERRERO MD Lab Interpretation Abnormal (test code = 59830-3) [facility] Health[facility] MUSCLE AB W/REFL [id number] 04:00:00 Test Item Value Reference Range Interpretation Comments SMOOTH MUSCLE AB SCREEN POSITIVE NEGATIVE A (test code = 23346-8) RAC (test code = RAC) Performing Organization Information: ? ?Site ID: EN ? ?[facility] ? ?Address: [address] [place] [address] ? ?Director: SAMMI GUERRERO MD Lab Interpretation (test Abnormal code = 84280-9) [facility] HealthMITOCHONDRIAL ANTIBODY W/REFL [id number] 19:00:00 Test Item Value Reference Range Interpretation Comments MITOCHONDRIAL AB NEGATIVE NEGATIVE SCREEN (test code = 30210-9) MITOCHONDRIAL AB NOT DONE titer Test Not TITER (test code = Performed . 5247-2) Screening test Negative or Not Detected.Titer not performed. RAC (test code = Performing RAC) Organization Information: ? ?Site ID: EZ ? ?Name: [facility] ? ?Address: [address] [place] [phone] ? ?Director: MARCO VELEZ MD,PHD,VASHTI [facility] GLYCOPROTEIN I AB (IGG, IGA, IGM)2021-10-06 06:00:00 Test Item Value Reference Range Interpretation Comments B2 GLYCOPROTEIN I <2.0 U/mL Value ? ? ? (IGG)AB (test code = ?Interp retation 32511-1) ----- ? <20.0 ?Antibody not detected> or = 20.0 ?Antibody detected B2 GLYCOPROTEIN I <2.0 U/mL Value ? ? ? (IGM)AB (test code = ?Interp retation 43740-3) ----- ? <20.0 ?Antibody not detected> or = 20.0 ?Antibody detected B2 GLYCOPROTEIN I <2.0 U/mL Value ? ? ? (IGA)AB (test code = ?Interp retation 83790-0) ----- ? <20.0 ?Antibody not detected> or = 20.0 ?Antibody detected RAC (test code = Performing RAC) Organization Information: ? ?Site ID: EZ ? ?Name: [facility] ? ?Address: [address] [place] [phone] ? ?Director: MARCO VELEZ MD,PHD,VASHTI [facility] TRANSGLUTAMINASE ANTIBODY, IGG,[id number] 23:00:00 Test Item Value Reference Range Interpretation Comments TISSUE TRANSGLUTAMINASE <1.0 U/mL Valu e ? AB, IGG (test code = ?Interp retatio 57585-0) n----- ? -<15.0 ?Antibody not detected> or = 15.0 ? ?Antibody detected TISSUE TRANSGLUTAMINASE <1.0 U/mL Valu e ? AB, IGA (test code = ?Interp retatio 97027-4) n----- ? -<15.0 ?Antibody not detected> or = 15.0 ? ?Antibody detected RAC (test code = RAC) Performing Organization Information: ? ?Site ID: IG ? ?Name: [facility] ? ?Address: [address] [place] [address] [place] [phone] ? ?Director: TUYET MORA MD [facility] [id number] 22:00:00 Test Item Value Reference Range Interpretation Comments SM ANTIBODY <1.0 NEG See_Comment [Automated (test code = message] The 72015-9) system which generated this result transmit ramon reference range : <1.0 NEG AI. Th e reference range was not used to interpret this result as normal/abnormal . SM/[employer] ANTIBODY <1.0 NEG See_Comment [Automated (test code = message] The 05986-2) system which generated this result transmit ramon reference range : <1.0 NEG AI. Th e reference range was not used to interpret this result as normal/abnormal . RAC (test code = Performing RAC) Organization Information: ? ?Site ID: IG ? ?Name: [facility] ? ?Address: [address] [place] [address], [place] [phone] ? ?Director: TUYET MORA MD [place] HealthSJOGREN'S ANTIBODIES (SS-A,SS-B)2021-10-05 22:00:00 Test Item Value Reference Range Interpretation Comments SJOGREN'S <1.0 NEG See_Comment [Automated ANTIBODY (SS-A) message] The (test code = system which 79302-3) generated this result transmit ramon reference range : <1.0 NEG AI. Th e reference range was not used to interpret this result as normal/abnormal . SJOGREN'S <1.0 NEG See_Comment [Automated ANTIBODY (SS-B) message] The (test code = system which 46044-9) generated this result transmit ramon reference range : <1.0 NEG AI. Th e reference range was not used to interpret this result as normal/abnormal . RAC (test code = Performing RAC) Organization Information: ? ?Site ID: IG ? ?Name: [facility] ? ?Address: [address] [place] [address], [place] [address] ? ?Director: TUYET MORA MD [place] HealthCOMPLEMENT COMP C3 AND [id number] 18:00:00 Test Item Value Reference Range Interpretation Comments COMPLEMENT 164 mg/dL 83-193 COMPONENT C3C (test code = 4485-9) COMPLEMENT 20 mg/dL 15-57 REPORT COMPONENT C4C COMMENT:WINSTON Boyd: (test code = NO 4498-2) RAC (test code = Performing RAC) Organization Information: ? ?Site ID: RGA ? ?Name: [facility] ? ?Address: [address] [place] [phone] ? ?Director: TUYET MORA MD [place] HealthProtein / creatinine ratio, [id number] 20:00:00 Test Item Value Reference Range Interpretation Comments CREATININE, 123 mg/dL 20-275 RANDOM URINE (test code = 2161-8) PROTEIN/CREATIN See_Comment [Automated INE RATIO (test message] The system code = 2890-2) which generat ed this result transmitted reference range : 0.021 - 0.161 m g/mg creat. The reference range was not used to interpret this result as normal/abnormal . PROTEIN, TOTAL, 5 mg/dL 5-24 REPORT RANDOM UR (test COMMENT:FAST ING:NO code = 2888-6) RAC (test code Performing = RAC) Organization Information: ? ?Site ID: RGA ? ?Name: [facility] ? ?Address: [address] [place] [phone] ? ?Director: TUYET MORA MD [place] HealthComprehensive metabolic [id number] 12:00:00 Test Item Value Reference Range Interpretation Comments GLUCOSE (test code = 93 mg/dL 65-139 ? ? ? 2345-7) Non-fasting reference interval UREA NITROGEN (BUN) 11 mg/dL 7-25 (test code = 3094-0) CREATININE (test 0.74 mg/dL 0.50-1.10 code = 2160-0) eGFR NON- See_Comment [Automated UGANDAN (test code message] The = 18418-7) system which generated this result transmitted reference range : > OR = 60 mL/min/1.73m2. The reference range was not used to interpr et this result as normal/abnormal . eGFR See_Comment [Automated UGANDAN (test code message] The = 05720-3) system which generated this result transmitted reference range : > OR = 60 mL/min/1.73m2. The reference range was not used to interpr et this result as normal/abnormal . BUN/CREATININE RATIO NOT APPLICABLE See_Comment [Aut omated (test code = 3097-3) message ] The system which generated this result transmitted reference range : 6 - 22 (calc). The reference range was not used to interpr et this result as normal/abnormal . SODIUM (test code = 138 mmol/L 416-058 4474-2) POTASSIUM (test code 4.5 mmol/L 3.5-5.3 = 2823-3) CHLORIDE (test code 105 mmol/L 98-110 = 2075-0) CARBON DIOXIDE (test 28 mmol/L 20-32 code = 8-9) CALCIUM (test code = 9.5 mg/dL 8.6-10.2 79943-4) PROTEIN, TOTAL (test 7.1 g/dL 6.1-8.1 code = 2885-2) ALBUMIN (test code = 4.4 g/dL 3.6-5.1 1751-7) GLOBULIN (test code See_Comment [Automa ramon = 43371-6) message] The system which generated this result transmitted reference range : 1.9 - 3.7 g/dL (calc). The reference range was not used to interpret this result as normal/abnormal . ALBUMIN/GLOBULIN See_Comment [Automated RATIO (test code = message] The 1758-0) system which generated this result transmitted reference range : 1.0 - 2.5 (calc ). The reference range was not used to interpr et this result as normal/abnormal . BILIRUBIN, TOTAL 0.3 mg/dL 0.2-1.2 (test code = 1974-2) ALKALINE PHOSPHATASE 80 U/L 31-125 (test code = 6768-6) AST (test code = 40 U/L 10-30 H 1920-8) ALT (test code = 97 U/L 6-29 H 1742-6) RAC (test code = Performing RAC) Organization Information: ? ?Site ID: RGA ? ?Name: [facility] ? ?Address: [address] [place] [phone] ? ?Director: TUYET MORA MD Lab Interpretation Abnormal (test code = 88614-5) [place] HealthUrinalysis with reflex [id number] 08:00:00 Test Item Value Reference Range Interpretation Comments COLOR (test code = YELLOW YELLOW 5778-6) APPEARANCE (test CLEAR CLEAR code = 5767-9) SPECIFIC GRAVITY 1.001-1.035 (test code = 5811-5) PH (test code = 5.0-8.0 5803-2) GLUCOSE (test code = NEGATIVE NEGATIVE 05495-5) BILIRUBIN (test code NEGATIVE NEGATIVE = 5770-3) KETONES (test code = NEGATIVE NEGATIVE 2514-8) BLOOD, UA (test code NEGATIVE NEGATIVE = 5794-3) PROTEIN (test code = NEGATIVE NEGATIVE 64971-8) NITRITE (test code = NEGATIVE NEGATIVE 5802-4) LEUKOCYTE ESTERASE TRACE NEGATIVE A (test code = 5799-2) WBC (test code = 0-5 See_Comment [Automated 5821-4) message] The system which generated this result transmitted reference range : < OR = 5 /HPF. The reference range was not used to interpr et this result as normal/abnormal . RBC (test code = 0-2 See_Comment [Automated 17724-0) message] The system which generated this result transmitted reference range : < OR = 2 /HPF. The reference range was not used to interpr et this result as normal/abnormal . SQUAMOUS EPITHELIAL 10-20 See_Comment A [Automa ramon CELLS (test code = message] The 70741-9) system which generated this result transmitted reference range : < OR = 5 /HPF. The reference range was not used to interpr et this result as normal/abnormal . BACTERIA (test code NONE SEEN NONE SEEN /HPF = 5769-5) HYALINE CAST (test NONE SEEN NONE SEEN /LPF REPORT code = 5796-8) COMMENT:FASTI NG:N O RAC (test code = Performing RAC) Organization Information: ? ?Site ID: RGA ? ?Name: [facility] ? ?Address: [address] [place] [phone] ? ?Director: TUYET MORA MD Lab Interpretation Abnormal (test code = 26547-0) [facility] and spgwuxlnryfb3951-69-75 08:00:00 Test Item Value Reference Range Interpretation Comments WHITE BLOOD CELL See_Comment [Automated COUNT (test code = message] The 0790-2) system which generated this result transmitted reference range : 3.8 - 10.8 Thousand/uL. Th e reference range was not used to interpret this result as normal/abnormal . RED BLOOD CELL See_Comment [Automated COUNT (test code = message] The 909-8) system which generated this result transmitted reference range : 3.80 - 5.10 Million/uL. The reference range was not used to interpret this result as normal/abnormal . HEMOGLOBIN (test 13.7 g/dL 11.7-15.5 code = 718-7) HEMATOCRIT (test 40.6 % 35.0-45.0 code = 4544-3) MCV (test code = 90 fL 80.0-100.0 787-2) MCH (test code = 30.4 pg 27.0-33.0 785-6) MCHC (test code = 33.7 g/dL 32.0-36.0 786-4) RDW (test code = 12.4 % 11.0-15.0 788-0) PLATELET COUNT See_Comment [Automated (test code = message] The 777-3) system which generated this result transmitted reference range : 140 - 400 Thousand/uL. Th e reference range was not used to interpret this result as normal/abnormal . MPV (test code = 12.3 fL 7.5-12.5 776-5) ABSOLUTE See_Comment [Automated NEUTROPHILS (test message] T he code = 751-8) system which generated this result transmitted reference range : 1500 - 7800 cells/uL. The reference range was not used to interpret this result as normal/abnormal . ABSOLUTE See_Comment [Automated LYMPHOCYTES (test message] T he code = 731-0) system which generated this result transmitted reference range : 850 - 3900 cells/uL. The reference range was not used to interpret this result as normal/abnormal . ABSOLUTE MONOCYTES See_Comment [Automat ed (test code = message] The 742-7) system which generated this result transmitted reference range : 200 - 950 cells/uL. The reference range was not used to interpret this result as normal/abnormal . ABSOLUTE See_Comment [Automated EOSINOPHILS (test message] T he code = 711-2) system which generated this result transmitted reference range : 15 - 500 cells/uL. The reference range was not used to interpret this result as normal/abnormal . ABSOLUTE BASOPHILS See_Comment [Automat ed (test code = message] The 704-7) system which generated this result transmitted reference range : 0 - 200 cells/u L. The reference range was not used to interpr et this result as normal/abnormal . NEUTROPHILS (test 71.2 % code = 770-8) LYMPHOCYTES (test 23 % code = 736-9) MONOCYTES (test 5 % code = 5905-5) EOSINOPHILS (test 0.5 % code = 713-8) BASOPHILS (test 0.3 % code = 706-2) RAC (test code = Performing RAC) Organization Information: ? ?Site ID: RGA ? ?Name: [facility] ? ?Address: [address] [place] [phone] ? ?Director: TUYET MORA MD [facility]2021-09-21 14:40:00 Test Item Value Reference Range Interpretation Comments Glucose Lvl (test code = Glucose Lvl) 118 65-99 [facility]2021-09-21 14:40:00 Test Item Value Reference Range Interpretation Comments BUN (test code = BUN) 14 7-25 [facility]2021-09-21 14:40:00 Test Item Value Reference Range Interpretation Comments Creatinine Lvl (test code = Creatinine 0.75 0.50-1.10 Lvl) [facility]2021-09-21 14:40:00 Test Item Value Reference Range Interpretation Comments eGFR NON-AFR. UGANDAN (test code = 105 eGFR NON-AFR. UGANDAN) [facility]2021-09-21 14:40:00 Test Item Value Reference Range Interpretation Comments eGFR (test code = eGFR 122 ) [facility]2021-09-21 14:40:00 Test Item Value Reference Range Interpretation Comments B/C Ratio (test code = B/C NOT APPLICABLE 6-22 Ratio) [facility]2021-09-21 14:40:00 Test Item Value Reference Range Interpretation Comments Sodium Lvl (test code = Sodium Lvl) 139 135-146 [facility]2021-09-21 14:40:00 Test Item Value Reference Range Interpretation Comments Potassium Lvl (test code = Potassium 4.3 3.5-5.3 Lvl) [facility]2021-09-21 14:40:00 Test Item Value Reference Range Interpretation Comments Chloride Lvl (test code = Chloride Lvl) 102 98-110 [place] 848801-09-21 14:40:00 Test Item Value Reference Range Interpretation Comments CO2 (test code = CO2) 29 20-32 [place] 848801-09-21 14:40:00 Test Item Value Reference Range Interpretation Comments Calcium Lvl (test code = Calcium Lvl) 9.7 8.6-10.2 [place] 848801-09-21 14:40:00 Test Item Value Reference Range Interpretation Comments Total Protein (test code = Total 7.4 6.1-8.1 Protein) [place] 848801-09-21 14:40:00 Test Item Value Reference Range Interpretation Comments Albumin Lvl (test code = Albumin Lvl) 4.4 3.6-5.1 [place] 848801-09-21 14:40:00 Test Item Value Reference Range Interpretation Comments Globulin (test code = Globulin) 3.0 1.9-3.7 [place] 848801-09-21 14:40:00 Test Item Value Reference Range Interpretation Comments A/G Ratio (test code = A/G Ratio) 1.5 1.0-2.5 [place] 848801-09-21 14:40:00 Test Item Value Reference Range Interpretation Comments Bili Total (test code = Bili Total) 0.5 0.2-1.2 [place] 848801-09-21 14:40:00 Test Item Value Reference Range Interpretation Comments Alk Phos (test code = Alk Phos) 69 31-125 [place] 848801-09-21 14:40:00 Test Item Value Reference Range Interpretation Comments ASPARTATE TRANSAMINASE (test code = 58 10-30 ASPARTATE TRANSAMINASE) [place] 848801-09-21 14:40:00 Test Item Value Reference Range Interpretation Comments ALANINE AMINOTRANSFERASE (test code = 111 6-29 ALANINE AMINOTRANSFERASE) [place] 848801-09-21 14:40:00 Test Item Value Reference Range Interpretation Comments Vitamin D, 25-OH, Total (test code = 17 30-100 Vitamin D, 25-OH, Total) [place] 696971-09-21 14:40:00 Test Item Value Reference Range Interpretation Comments WBC X 10x3 (test code = WBC X 10x3) 4.9 3.8-10.8 [place] 696971-09-21 14:40:00 Test Item Value Reference Range Interpretation Comments RBC X 10x6 (test code = RBC X 10x6) 4.36 3.80-5.10 [facility]OT[facility]OXWS7830[facility]47-[facility] 14:40:00 Test Item Value Reference Range Interpretation Comments Hgb (test code = Hgb) 13.5 11.7-15.5 [place] 696971-09-21 14:40:00 Test Item Value Reference Range Interpretation Comments Hct (test code = Hct) 39.5 35.0-45.0 [facility]QhoedhjKIHUHOIVAH0494-83-63 14:40:00 Test Item Value Reference Range Interpretation Comments MCV (test code = MCV) 90.6 80.0-100.0 [facility]anoFkcuhzxLAPIMNKZHX7999-05-01 14:40:00 Test Item Value Reference Range Interpretation Comments MCH (test code = MCH) 31.0 pg 27.0-33.0 [facility]anoHdeeaeeXFYXYLZCYU0870-84-79 14:40:00 Test Item Value Reference Range Interpretation Comments MCHC (test code = MCHC) 34.2 32.0-36.0 [facility]anoZtcymugJARNXWBOXB3032-08-80 14:40:00 Test Item Value Reference Range Interpretation Comments RDW (test code = RDW) 12.2 11.0-15.0 [facility]anoHsssmoqQKQZVWFNBU4884-08-14 14:40:00 Test Item Value Reference Range Interpretation Comments Platelet (test code = Platelet) 197 140-400 [facility]anoIddxijuLGREKPRWNO8929-18-88 14:40:00 Test Item Value Reference Range Interpretation Comments MPV (test code = MPV) 11.9 7.5-12.5 [facility]anoWwbgdmmDFYUSVKLTU8820-26-28 14:40:00 Test Item Value Reference Range Interpretation Comments Neutrophils # (test code = Neutrophils 3170 4725-7797 #) [facility]anoXuvpumrHSJSNYSVHW6497-11-44 14:40:00 Test Item Value Reference Range Interpretation Comments Lymphocytes # (test code = Lymphocytes 0257 531-9281 #) [facility]anoHiphmdmGSPKTYWRSB5665-96-51 14:40:00 Test Item Value Reference Range Interpretation Comments Monocytes # (test code = Monocytes #) 299 200-950 [facility]anoWuwzkjjBMBZSLVHVY2989-27-08 14:40:00 Test Item Value Reference Range Interpretation Comments Eosinophils # (test code = Eosinophils 49 15-500 #) [facility]anoGnqtdhwIIUCDCWGZG0339-36-53 14:40:00 Test Item Value Reference Range Interpretation Comments Basophils # (test code 20 See_Comment [Aut omated message] The = Basophils #) system which generated this result tra nsmitted reference range : <=200. The reference r yadira was not used to int erpret this result as normal/abnormal . [facility]anoHdggpeuEMCBUJVCED0575-57-26 14:40:00 Test Item Value Reference Range Interpretation Comments Segs (test code = Segs) 64.7 [facility]anoDlzysdeLTZVVZEKMX6034-96-52 14:40:00 Test Item Value Reference Range Interpretation Comments Lymphocytes (test code = Lymphocytes) 27.8 [facility]anoXvyvewkEVLHDYWSLP9705-06-96 14:40:00 Test Item Value Reference Range Interpretation Comments Monocytes (test code = Monocytes) 6.1 [facility]anoTtbzbkiLBIAGCMAQJ5566-82-19 14:40:00 Test Item Value Reference Range Interpretation Comments Eosinophils (test code = Eosinophils) 1.0 [facility]udzLUPZNOJWFI8232-23-91 14:40:00 Test Item Value Reference Range Interpretation Comments Basophils (test code = Basophils) 0.4 [facility]anoBsgqaluFGRFMCIFMS2766-35-14 14:40:00 Test Item Value Reference Range Interpretation Comments Sed Rate (test code = Sed Rate) 9 [facility]CjijokyMIHJCHKGEE4173-76-54 14:40:00 Test Item Value Reference Range Interpretation Comments C-REACTIVE PROTEIN (test code = 4.4 C-REACTIVE PROTEIN) [facility] CenterCmkmqevIHNNURCXNE1404-33-60 14:40:00 Test Item Value Reference Range Interpretation Comments MECHE (test code = MECHE) POSITIVE [facility] CenterIoxearbGEPBJOLSZG6672-87-15 14:40:00 Test Item Value Reference Range Interpretation Comments MECHE Titer (test code = MECHE Titer) 1:320 [facility] CenterIvzexrxSMUTNBYMZZ2466-52-85 14:40:00 Test Item Value Reference Range Interpretation Comments MECHE Pattern (test code Nuclear, Dense Fine = MECHE Pattern) Speckled [facility] CenterLACTIC [id number] 20:32:00 Test Item Value Reference Range Interpretation Comments LACTIC ACID (test code = LACT) 1.9 mmol/L 0.4-2.0 N COMPREHENSIVE METABOLIC [id number] 20:19:00 Test Item Value Reference Range Interpretation Comments SODIUM (test code = NA) 138 mmol/L 134-147 N POTASSIUM (test code = 3.8 mmol/L 3.4-5.0 N K) CHLORIDE (test code = 105 mmol/L 100-108 N CL) CARBON DIOXIDE (test 27 mmol/L 21-32 N code = CO2) ANION GAP (test code = 6.0 GAP calc 4.0-15.0 N GAP) GLUCOSE (test code = 105 MG/DL 70-110 N GLU) BLOOD UREA NITROGEN 9 MG/DL 7-18 N (test code = BUN) GLOMERULAR FILTRATION >=60 max estimate >60 RATE (test code = GFR) estGFR CREATININE (test code = 0.8 MG/DL 0.6-1.0 N CREAT) TOTAL PROTEIN (test code 7.9 G/DL 6.4-8.2 N = PROT) ALBUMIN (test code = 3.9 G/DL 3.4-5.0 N ALB) GLOBULIN (test code = 4.0 GM/dL GLOB) ALBUMIN/GLOBULIN RATIO 1.0 RATIO 1.2-2.2 L (test code = A/G) CALCIUM (test code = CA) 8.5 MG/DL 8.5-10.1 N BILIRUBIN TOTAL (test 0.40 MG/DL 0.2-1.2 N code = BILT) SGOT/AST (test code = 65 Unit/L 15-37 H AST) SGPT/ALT (test code = 183 Unit/L 12-78 H ALT) ALKALINE PHOSPHATASE 105 Unit/L 45-117 N TOTAL (test code = ALKP) [id number] 20:19:00 Test Item Value Reference Range Interpretation Comments LIPASE (test code = LIP) 59 Unit/L 114-286 L CBC W/AUTO [id number] 20:15:00 Test Item Value Reference Range Interpretation Comments WHITE BLOOD CELL (test code = 6.5 K/mm3 3.5-11.0 N WBC) RED BLOOD CELL (test code = 4.41 M/mm3 4.70-6.10 L RBC) HEMOGLOBIN (test code = HGB) 13.7 G/DL 10.4-14.9 N HEMATOCRIT (test code = HCT) 39.8 % 31.5-44.1 N MEAN CELL VOLUME (test code = 90.2 Fl 84.5-98.6 N MCV) MEAN CELL HGB (test code = MCH) 31.1 pg 27.0-34.2 N MEAN CELL HGB CONCETRATION 34.4 G/DL 31.5-34.0 H (test code = MCHC) RED CELL DISTRIBUTION WIDTH 11.8 SD 11.5-14.5 N (test code = RDW) PLATELET COUNT (test code = 183 K/mm3 150-450 N PLT) MEAN PLATELET VOLUME (test code 11.70 fL 7.0-10.5 H = MPV) NEUTROPHIL % (test code = NT%) 84.7 % 40-76 H IMMATURE GRANULOCYTE % (test 0.2 % 0.0-5.0 N code = IG%) LYMPHOCYTE % (test code = LY%) 10.2 % 20.5-51.1 L MONOCYTE % (test code = MO%) 4.5 % 1.7-9.3 N EOSINOPHIL % (test code = EO%) 0.2 % 0.0-6.0 N BASOPHIL % (test code = BA%) 0.2 % 0.0-2.0 N NUCLEATED RBC % (test code = 0.0 /100WBC% 0.0-1.0 N NRBC%) NEUTROPHIL # (test code = NT#) 5.5 K/mm3 1.8-7.6 N IMMATURE GRANULOCYTE # (test 0.01 x10 3/uL 0.00-0.03 N code = IG#) LYMPHOCYTE # (test code = LY#) 0.7 K/mm3 0.6-3.2 N MONOCYTE # (test code = MO#) 0.3 K/mm3 0.3-1.1 N EOSINOPHIL # (test code = EO#) 0.0 K/mm3 0.0-0.4 N BASOPHIL # (test code = BA#) 0.0 K/mm3 0.0-0.1 N NUCLEATED RBC # (test code = 0.0 K/mm3 0.0-0.1 N NRBC#) MANUAL DIFF REQUIRED (test code NO DIFF/SCN CRITERIA = MDIFF) Coronavirus 2019 nCoV [id number] 20:04:00 Test Item Value Reference Range Interpretation Comments Coronavirus 2018 nCoV Negative Negative Per robin nufacturer, Bedside (test code = negativ e results should [id number]) be treated aspresumptive a nd, if inconsistent wi th clinical signs andsymptoms or necessary for p atient management, shimon uld betested with a n alternative mol ecular assay. Negative resultsdo not p reclude SARS-CoV-2 infe ction and should not be usedas the sole basis for patient man agement decisions. Nega tive results should be considered in t he context of apat ient's recent exposure s, history, presen ce of clinicalsigns a nd symptoms consis tent with COVID-19. UA RFLX MICR CULT IF [id number] 19:51:00 Test Item Value Reference Range Interpretation Comments UA COLOR (test code = YELLOW discript YEL/STRAW COLU) UA APPEARANCE (test code CLEAR discript CLEAR = APPU) UA GLUCOSE DIPSTICK (test NEGATIVE mg/dL NEG code = DGLUU) UA BILIRUBIN DIPSTICK NEGATIVE mg/dL NEG (test code = BILU) UA KETONE DIPSTICK (test NEGATIVE mg/dL NEG code = KETU) UA SPECIFIC GRAVITY (test 1.010 SG 1.005-1.030 code = SGU) UA BLOOD DIPSTICK (test NEGATIVE mg/DL NEG code = MELIDA) UA PH DIPSTICK (test code 7.5 pH UNITS 5.0-7.0 A = FELA) UA PROTEIN DIPSTICK (test NEGATIVE mg/dL NEG code = PROU) UA UROBILINIOGEN DIPSTICK 0.2 mg/dL <2.0 (test code = URO) UA NITRITE DIPSTICK (test NEGATIVE SCREEN NEG code = DYLAN) UA LEUKOCYTE ESTERASE NEGATIVE Leuk/mcL NEGATIVE DIPSTICK (test code = LEUU) UA CULTURE NEEDED? (test NO, WBC<10 Criteria Culture CHK code = UACULT) Indication for culture: Dysuria/FrequencyUR HCG [id number] 19:51:00 Test Item Value Reference Range Interpretation Comments UR HCG QUAL (test code = HCGQLU) NEGATIVE NEGATIVE Indication for culture: Dysuria/FrequencyUA RFLX MICR CULT IF INDICATED 2021-03-04 19:50:00 Test Item Value Reference Range Interpretation Comments UA COLOR (test code = COLU) YELLOW discript YEL/STRAW UA APPEARANCE (test code = CLEAR discript CLEAR APPU) UA GLUCOSE DIPSTICK (test NEGATIVE mg/dL NEG code = DGLUU) UA BILIRUBIN DIPSTICK (test NEGATIVE mg/dL NEG code = BILU) UA KETONE DIPSTICK (test NEGATIVE mg/dL NEG code = KETU) UA SPECIFIC GRAVITY (test 1.010 SG 1.005-1.030 code = SGU) UA BLOOD DIPSTICK (test NEGATIVE mg/DL NEG code = MELIDA) UA PH DIPSTICK (test code = 7.5 pH UNITS 5.0-7.0 A FELA) UA PROTEIN DIPSTICK (test NEGATIVE mg/dL NEG code = PROU) UA UROBILINIOGEN DIPSTICK 0.2 mg/dL <2.0 (test code = URO) UA NITRITE DIPSTICK (test NEGATIVE SCREEN NEG code = DYLAN) UA LEUKOCYTE ESTERASE NEGATIVE Leuk/mcL NEGATIVE DIPSTICK (test code = LEUU) UA CULTURE NEEDED? (test Criteria Culture CHK code = UACULT) Indication for culture: Dysuria/FrequencyUR HCG [id number] 19:50:00 Test Item Value Reference Range Interpretation Comments UR HCG QUAL (test code = HCGQLU) NEGATIVE Indication for culture: Dysuria/Frequency- XR CHEST 2 [id number] 21:16:00 [facility] 1990 Sex: F Name: HIMANSHU ALLEN [facility] : 1990 Age/S: 30 / F [address] [place] Unit #: [id number] Loc: [place] [address] Phys: Pb Wilcox MD Acct: [id number] Dis Date: Status: REG ER PHONE #: [phone] Exam Date: 01/12/20212112 FAX #: Reason: cough, uri symptoms EXAMS: CPT: [id number] XR CHEST 2 V 32945 Fluoro Time: DAP (Gy m2): Air Kerma (mGy): Location code: B2 HISTORY: Cough, respiratory infection TECHNIQUE: Frontal and lateral views of the chest were obtained. FINDINGS: The cardiomediastinal silhouette is unremarkable. The trachea is midline. The lungs are clear. There is no effusion or pneumothorax. The bones are intact. IMPRESSION: No acute pulmonary process. at 6 Reported and signed by: Joo Abrams M.D. CC: Pb Wilcox MD PAGE 1 Signed Report Name: HIMANSHU YOON [facility] : 1990 Age/S: 30 / F [address] [address] [place] Unit #: [id number] Loc: [place] [address] Phys: Pb Wilcox MD Acct: [id number] Dis Date: Status: REG ER PHONE #: [phone] Exam Date: 01/12/20212112 FAX #: Reason: cough, uri symptoms EXAMS: CPT: [id number] XR CHEST 2 V [id number] Fluoro Time: DAP (Gy m2): Air Kerma (mGy): (Continued) Technologist: Denisse Rowan, RT(R)(CT) Trnscb Date/Time: 01/12/2021 (2115) [email or web address] Orig PrintD/T: S: 01/12/2021 (2118) PAGE 2 Signed ReportIMMUNOLOGY 2021-01-11 00:49:00 Test Item Value Reference Range Interpretation Comments Coronavirus (COVID-19) BELEM (test NOT DETECTED code = Coronavirus (COVID-19) BELEM) [facility] [id number] 00:27:00 Test Item Value Reference Range Interpretation Comments POC UA Color (test code = POC UA Dark yellow Color) [facility] [id number] 00:27:00 Test Item Value Reference Range Interpretation Comments POC UA Turbidity (test Turbid *ABN*(01/10/21 code = POC UA Turbidity) 7:27 PM) [facility] [id number] 00:27:00 Test Item Value Reference Range Interpretation Comments POC UA SG (test code = POC UA SG) 1.020 1 [facility] [id number] 00:27:00 Test Item Value Reference Range Interpretation Comments POC UA pH (test code = POC UA pH) 7.5 1 5.0-8.0 [facility] [id number] 00:27:00 Test Item Value Reference Range Interpretation Comments POC UA Prot (test code = POC Negative mg/dL UA Prot) [facility] [id number] 00:27:00 Test Item Value Reference Range Interpretation Comments POC UA Glu (test code = POC UA Negative mg/dL Glu) [facility] [id number] 00:27:00 Test Item Value Reference Range Interpretation Comments POC UA Ket (test code = POC UA Negative mg/dL Ket) [facility] [id number] 00:27:00 Test Item Value Reference Range Interpretation Comments POC UA Bili (test Negative *NA*(01/10/21 code = POC UA Bili) 7:27 PM) [facility] [id number] 00:27:00 Test Item Value Reference Range Interpretation Comments POC UA Bld (test code Negative *NA*(01/10/21 = POC UA Bld) 7:27 PM) [facility] [id number] 00:27:00 Test Item Value Reference Range Interpretation Comments POC UA Uro (test code = POC UA Uro) 1.0 0.1-1.0 [facility] [id number] 00:27:00 Test Item Value Reference Range Interpretation Comments POC UA Nit (test code Negative *NA*(01/10/21 = POC UA Nit) 7:27 PM) [facility] [id number] 00:27:00 Test Item Value Reference Range Interpretation Comments POC UA LeukEst (test Negative *NA*(01/10/21 code = POC UA LeukEst) 7:27 PM) [facility] [id number] 00:26:00 Test Item Value Reference Range Interpretation Comments Result 2 (Urine Culture) See Result Comment (test code = Result 2 (Urine Culture)) [id number] 23:29:00 Test Item Value Reference Range Interpretation Comments POC COVID-19 Antigen Not Detected (test code = POC *NA*(01/10/21 6:29 PM) COVID-19 Antigen) [facility] METABOLIC [id number] 20:14:00 Test Item Value Reference Range Interpretation Comments SODIUM (test code = NA) 140 mmol/L 134-147 N POTASSIUM (test code = 3.9 mmol/L 3.4-5.0 N K) CHLORIDE (test code = 106 mmol/L 100-108 N CL) CARBON DIOXIDE (test 29 mmol/L 21-32 N code = CO2) ANION GAP (test code = 5.0 GAP calc 4.0-15.0 N GAP) GLUCOSE (test code = 101 MG/DL 70-110 N GLU) BLOOD UREA NITROGEN 13 MG/DL 7-18 N (test code = BUN) GLOMERULAR FILTRATION >=60 max estimate >60 RATE (test code = GFR) estGFR CREATININE (test code = 0.9 MG/DL 0.6-1.0 N CREAT) CALCIUM (test code = CA) 8.3 MG/DL 8.5-10.1 L HEPATIC FUNCTION [id number] 20:14:00 Test Item Value Reference Range Interpretation Comments TOTAL PROTEIN (test code = PROT) 7.4 G/DL 6.4-8.2 N ALBUMIN (test code = ALB) 3.6 G/DL 3.4-5.0 N BILIRUBIN TOTAL (test code = 0.20 MG/DL 0.2-1.2 N BILT) BILIRUBIN DIRECT (test code = < 0.10 MG/DL 0.00-0.30 N BILD) BILIRUBIN INDIRECT (test code = 0.10 MG/DL 0.2-1.2 L BILIND) SGOT/AST (test code = AST) 57 Unit/L 15-37 H SGPT/ALT (test code = ALT) 144 Unit/L 12-78 H ALKALINE PHOSPHATASE TOTAL (test 98 Unit/L 45-117 N code = ALKP) [id number] 20:14:00 Test Item Value Reference Range Interpretation Comments LIPASE (test code = LIP) 73 Unit/L 114-286 L BASIC METABOLIC [id number] 20:06:00 Test Item Value Reference Range Interpretation Comments SODIUM (test code = NA) 140 mmol/L 134-147 N POTASSIUM (test code = K) 3.9 mmol/L 3.4-5.0 N CHLORIDE (test code = CL) 106 mmol/L 100-108 N CARBON DIOXIDE (test code = CO2) 29 mmol/L 21-32 N ANION GAP (test code = GAP) 5.0 GAP calc 4.0-15.0 N GLUCOSE (test code = GLU) 101 MG/DL 70-110 N BLOOD UREA NITROGEN (test code = 13 MG/DL 7-18 N BUN) GLOMERULAR FILTRATION RATE (test estGFR >60 code = GFR) CREATININE (test code = CREAT) MG/DL 0.6-1.0 CALCIUM (test code = CA) 8.3 MG/DL 8.5-10.1 L HEPATIC FUNCTION [id number] 20:06:00 Test Item Value Reference Range Interpretation Comments TOTAL PROTEIN (test code = PROT) G/DL 6.4-8.2 ALBUMIN (test code = ALB) G/DL 3.4-5.0 BILIRUBIN TOTAL (test code = BILT) MG/DL 0.2-1.2 BILIRUBIN DIRECT (test code = BILD) MG/DL 0.00-0.30 BILIRUBIN INDIRECT (test code = MG/DL 0.2-1.2 BILIND) SGOT/AST (test code = AST) Unit/L 15-37 SGPT/ALT (test code = ALT) Unit/L 12-78 ALKALINE PHOSPHATASE TOTAL (test code Unit/L 45-117 = ALKP) [id number] 20:06:00 Test Item Value Reference Range Interpretation Comments LIPASE (test code = LIP) 73 Unit/L 114-286 L CBC W/AUTO [id number] 19:55:00 Test Item Value Reference Range Interpretation Comments WHITE BLOOD CELL (test code = 6.4 K/mm3 3.5-11.0 N WBC) RED BLOOD CELL (test code = 4.24 M/mm3 4.70-6.10 L RBC) HEMOGLOBIN (test code = HGB) 13.1 G/DL 10.4-14.9 N HEMATOCRIT (test code = HCT) 38.4 % 31.5-44.1 N MEAN CELL VOLUME (test code = 90.6 Fl 84.5-98.6 N MCV) MEAN CELL HGB (test code = MCH) 30.9 pg 27.0-34.2 N MEAN CELL HGB CONCETRATION 34.1 G/DL 31.5-34.0 H (test code = MCHC) RED CELL DISTRIBUTION WIDTH 11.9 SD 11.5-14.5 N (test code = RDW) PLATELET COUNT (test code = 214 K/mm3 150-450 N PLT) MEAN PLATELET VOLUME (test code 11.60 fL 7.0-10.5 H = MPV) NEUTROPHIL % (test code = NT%) 59.9 % 40-76 N IMMATURE GRANULOCYTE % (test 0.3 % 0.0-5.0 N code = IG%) LYMPHOCYTE % (test code = LY%) 29.5 % 20.5-51.1 N MONOCYTE % (test code = MO%) 7.8 % 1.7-9.3 N EOSINOPHIL % (test code = EO%) 2.0 % 0.0-6.0 N BASOPHIL % (test code = BA%) 0.5 % 0.0-2.0 N NUCLEATED RBC % (test code = 0.0 /100WBC% 0.0-1.0 N NRBC%) NEUTROPHIL # (test code = NT#) 3.9 K/mm3 1.8-7.6 N IMMATURE GRANULOCYTE # (test 0.02 x10 3/uL 0.00-0.03 N code = IG#) LYMPHOCYTE # (test code = LY#) 1.9 K/mm3 0.6-3.2 N MONOCYTE # (test code = MO#) 0.5 K/mm3 0.3-1.1 N EOSINOPHIL # (test code = EO#) 0.1 K/mm3 0.0-0.4 N BASOPHIL # (test code = BA#) 0.0 K/mm3 0.0-0.1 N NUCLEATED RBC # (test code = 0.0 K/mm3 0.0-0.1 N NRBC#) MANUAL DIFF REQUIRED (test code NO DIFF/SCN CRITERIA = MDIFF) UA RFLX MICR CULT IF [id number] 19:19:00 Test Item Value Reference Range Interpretation Comments UA COLOR (test code = COLU) YELLOW discript YEL/STRAW UA APPEARANCE (test code = CLEAR discript CLEAR APPU) UA GLUCOSE DIPSTICK (test NEGATIVE mg/dL NEG code = DGLUU) UA BILIRUBIN DIPSTICK (test NEGATIVE mg/dL NEG code = BILU) UA KETONE DIPSTICK (test NEGATIVE mg/dL NEG code = KETU) UA SPECIFIC GRAVITY (test 1.015 SG 1.005-1.030 code = SGU) UA BLOOD DIPSTICK (test NEGATIVE mg/DL NEG code = MELIDA) UA PH DIPSTICK (test code = 8.0 pH UNITS 5.0-7.0 FELA) UA PROTEIN DIPSTICK (test NEGATIVE mg/dL NEG code = PROU) UA UROBILINIOGEN DIPSTICK 0.2 mg/dL <2.0 (test code = URO) UA NITRITE DIPSTICK (test NEGATIVE SCREEN NEG code = DYLAN) UA LEUKOCYTE ESTERASE NEGATIVE Leuk/mcL NEGATIVE DIPSTICK (test code = LEUU) Indication for culture: Suprapubic PainUR HCG [id number] 19:19:00 Test Item Value Reference Range Interpretation Comments UR HCG QUAL (test code = HCGQLU) NEGATIVE NEGATIVE Indication for culture: Suprapubic PainUA RFLX MICR CULT IF [id number] 19:18:00 Test Item Value Reference Range Interpretation Comments UA COLOR (test code = COLU) discript YEL/STRAW UA APPEARANCE (test code = APPU) discript CLEAR UA GLUCOSE DIPSTICK (test code = mg/dL NEG DGLUU) UA BILIRUBIN DIPSTICK (test code = mg/dL NEG BILU) UA KETONE DIPSTICK (test code = mg/dL NEG KETU) UA SPECIFIC GRAVITY (test code = SG 1.005-1.030 SGU) UA BLOOD DIPSTICK (test code = MELIDA) mg/DL NEG UA PH DIPSTICK (test code = FELA) pH UNITS 5.0-7.0 UA PROTEIN DIPSTICK (test code = mg/dL NEG PROU) UA UROBILINIOGEN DIPSTICK (test mg/dL <2.0 code = URO) UA NITRITE DIPSTICK (test code = SCREEN NEG DYLAN) UA LEUKOCYTE ESTERASE DIPSTICK Leuk/mcL NEGATIVE (test code = LEUU) UA CULTURE NEEDED? (test code = Criteria Culture CHK UACULT) Indication for culture: Suprapubic PainUR HCG [id number] 19:18:00 Test Item Value Reference Range Interpretation Comments UR HCG QUAL (test code = HCGQLU) NEGATIVE NEGATIVE Indication for culture: Suprapubic PainUA RFLX MICR CULT IF [id number] 19:18:00 Test Item Value Reference Range Interpretation Comments UA COLOR (test code = COLU) YELLOW discript YEL/STRAW UA APPEARANCE (test code = CLEAR discript CLEAR APPU) UA GLUCOSE DIPSTICK (test NEGATIVE mg/dL NEG code = DGLUU) UA BILIRUBIN DIPSTICK (test NEGATIVE mg/dL NEG code = BILU) UA KETONE DIPSTICK (test NEGATIVE mg/dL NEG code = KETU) UA SPECIFIC GRAVITY (test 1.015 SG 1.005-1.030 code = SGU) UA BLOOD DIPSTICK (test NEGATIVE mg/DL NEG code = MELIDA) UA PH DIPSTICK (test code = 8.0 pH UNITS 5.0-7.0 FELA) UA PROTEIN DIPSTICK (test NEGATIVE mg/dL NEG code = PROU) UA UROBILINIOGEN DIPSTICK 0.2 mg/dL <2.0 (test code = URO) UA NITRITE DIPSTICK (test NEGATIVE SCREEN NEG code = DYLAN) UA LEUKOCYTE ESTERASE NEGATIVE Leuk/mcL NEGATIVE DIPSTICK (test code = LEUU) UA CULTURE NEEDED? (test Criteria Culture CHK code = UACULT) Indication for culture: Suprapubic PainUR HCG [id number] 19:18:00 Test Item Value Reference Range Interpretation Comments UR HCG QUAL (test code = HCGQLU) NEGATIVE NEGATIVE Indication for culture: Suprapubic [id number] 19:31:00 Test Item Value Reference Range Interpretation Comments PT (test code = PT) 12.3 s 12.0-14.7 [id number] 19:31:00 Test Item Value Reference Range Interpretation Comments INR (test code = INR) 0.93 1 0.85-1.17 [id number] 19:31:00 Test Item Value Reference Range Interpretation Comments PTT (test code = PTT) 28.8 s 22.9-35.8 [id number] 19:31:00 Test Item Value Reference Range Interpretation Comments vWF Antigen (test code = vWF Antigen) 98 45-165 [id number] 19:31:00 Test Item Value Reference Range Interpretation Comments vWF Multimers (test code = vWF Comment Multimers) [id number] 19:31:00 Test Item Value Reference Range Interpretation Comments Factor VIII (test code = Factor VIII) 194 50-242 [id number] 19:31:00 Test Item Value Reference Range Interpretation Comments vWF Assay (test code = vWF Assay) 93 45-140 [id number] 19:31:00 Test Item Value Reference Range Interpretation Comments Plt Agg Interp (test Platelet aggregation code = Plt Agg study with Ristocetin Interp) shows normal aggregation with ristocetin at all concentrations. Impression: no evidence of von Willebrand disease or Jamie Soulier syndrome. CPT: 38770 [id number] 19:31:00 Test Item Value Reference Range Interpretation Comments Ris 1.5 (test code = Ris 1.5) 75 [id number] 19:31:00 Test Item Value Reference Range Interpretation Comments Ris .75 (test code = Ris .75) 0 [facility]2019-08-22 14:41:00 Test Item Value Reference Range Interpretation Comments U Preg (test code = U Negative (06/14/19 9:41 Preg) AM) [facility]
--- NOTE | 2022-11-28 19:24 | RAD REPORT ---
EXAM DESCRIPTION: US - Abdomen Exam Limited - 11/28/2022 6:50 pm CLINICAL HISTORY: EPIGASTRIC PAIN COMPARISON: ABDOMINAL EXAM LIMITED dated 11/08/2013 FINDINGS: Gallbladder is contracted. No gallstones, sludge or other abnormalities within the gallbla dder lumen confirmed. There is no true wall thickening or pericholecystic fluid. No common duct stone or biliary tree dilatation identified. IMPRESSION: Limited study showing contracted gallbladder. No stones confirmed and no acute gallbladder or biliary tree finding suspected.
[2022-11-28 19:47] LABS: Renal Epithelial <5 /HPF (None Seen); Urine Bacteria None Seen /HPF (<20); Urine Mucus Slight /HPF (None Seen); Urine RBC None Seen /HPF (None Seen)
[2022-11-28 20:10] LABS: Absolute Lymphocytes (CBC) 1.9 K/uL (0.7-4.9); Hematocrit 36.9 % (36.0-45.0); Lymphocytes % 31.1 % (15.3-44.8); MCV 88.5 fL (80-100); MPV 9.8 fL (7.6-11.3); RBC Red Blood Cell Count 4.17 M/uL (3.86-4.86)
[2022-11-28 20:25] LABS: Albumin 3.6 g/dL (3.4-5.0); Bilirubin Total 0.2 mg/dL (0.2-1.0); Potassium 3.9 mmol/L (3.5-5.1); Protein, Total 7.3 g/dL (6.4-8.2)
[2022-11-28] MEDS ORDERED: ONDANSETRON 4 MG/2 ML VIAL ONE (20:36)
[2022-11-28] MEDS ORDERED: FAMOTIDINE 20 MG/2 ML VIAL IV ONE (20:36)
--- NOTE | 2022-11-28 21:03 | RAD REPORT ---
EXAM DESCRIPTION: CTAbdomen Pelvis W Contrast - 11/28/2022 8:50 pm CLINICAL HISTORY: Abdominal pain. upper abdomen pain COMPARISON: Abdomen Exam Limited dated 11/28/2022 TECHNIQUE: Biphasic CT imaging of the abdomen and pelvis was performed with 100 ml non-ionic IV cont rast. All CT scans are performed using dose optimization technique as appropriate and may include automated exposure control or mA/KV adjustment according to patient size. FINDINGS: The lung bases are clear. Mild diffuse fatty liver is present. 29 mm peripherally enhancing liver lesion in the anterior right lobe is likely hemangioma. No worrisome liver mass. No intra or extrahepatic biliary tree dilatation. Spleen, pancreas, adrenal glands and kidneys are within normal limits. No bowel obstruction, free air, free fluid or abscess. The appendix is normal. No evidence of signi ficant lymphadenopathy. No suspicious bony findings. IMPRESSION: No acute intra-abdominal or pelvic finding. Prominent diffuse fatty liver with suspected hepatic hemangioma. Nonemergent followup MR liver protoc ol would be helpful.
[2022-11-28 21:27] LABS: Urine Specific Gravity/Preg 1.015 (1.005-1.030)
--- NOTE | 2022-11-28 21:42 | EDPHYS ---
Physician Documentation [facility] Name: Swati Andrea Age: 32 yrs Sex: Female : 1990 Arrival Date: 11/28/2022 Time: 17:27 Bed 4 Private MD: ED Physician William Ward HPI: 11/28 18:45 This 32 yrs old Female presents to ER via Ambulatory with complaints of cp Abdominal Pain, Diarrhea. 18:45 The patient presents with abdominal pain in the epigastric area. Onset: The cp symptoms/episode began/occurred 8 day(s) ago. The symptoms do not radiate. Associated signs and symptoms: Pertinent positives: diarrhea, headache, nausea, green colored stool, Pertinent negatives: anorexia, blood in stools, chest pain, constipation, fever, vomiting, vomiting blood. 18:45 The symptoms are described as achy. Severity of pain: in the emergency department the cp pain is unchanged despite home interventions. Historical: - Allergies: 17:33 Levaquin; ll1 - PMHx: 17:29 HTN WHILE ONLY; ll1 17:33 Asthma; ll1 - PSHx: 17:33 section; breast reduction; ll1 - Immunization history:: Client reports receiving the 2nd dose of the Covid vaccine. - Social history:: Smoking status: Patient denies any tobacco usage or history of. ROS: 18:50 Constitutional: Negative for body aches, chills, fever, poor PO intake. cp 18:50 Eyes: Negative for injury, pain, redness, and discharge. cp 18:50 ENT: Negative for drainage from ear(s), ear pain, sore throat, difficulty swallowing, difficulty handling secretions. 18:50 Cardiovascular: Negative for chest pain, edema, palpitations. 18:50 Respiratory: Negative for cough, shortness of breath. 18:50 Abdomen/GI: Positive for abdominal pain, nausea, diarrhea, of the epigastric area, Negative for constipation, black/tarry stool, rectal bleeding. 18:50 : Negative for urinary symptoms, vaginal bleeding, vaginal discharge. 18:50 Neuro: Positive for headache, Negative for altered mental status, dizziness, syncope, weakness. 18:50 All other systems are negative. Exam: 18:55 Constitutional: The patient appears in no acute distress, alert, awake, cp non-diaphoretic, non-toxic, well developed, well nourished, overweight 18:55 Head/Face: Normocephalic, atraumatic. cp 18:55 Eyes: Periorbital structures: appear normal, Pupils: equal, round, and reactive to cp light and accomodation, Extraocular movements: intact throughout, Conjunctiva: normal, no exudate, no injection, Sclera: no appreciated abnormality, Lids and lashes: appear normal, bilaterally. 18:55 ENT: External ear(s): are unremarkable, Nose: is normal, Mouth: Lips: moist, Oral mucosa: pink and intact, moist, Posterior pharynx: is normal, airway is patent, no erythema, no exudate. 18:55 Neck: ROM/movement: is normal, is supple, without pain, no range of motions limitations. 18:55 Chest/axilla: Inspection: normal. cp 18:55 Cardiovascular: Rate: normal, Rhythm: regular. 18:55 Respiratory: the patient does not display signs of respiratory distress, Respirations: normal, no use of accessory muscles, no retractions, no splinting, Breath sounds: are clear throughout, no decreased breath sounds, no stridor, no wheezing. 18:55 Abdomen/GI: Inspection: abdomen appears normal, Bowel sounds: active, all quadrants, Palpation: soft, in all quadrants, moderate abdominal tenderness, in the epigastric area, rebound tenderness, is not appreciated, involuntary guarding, is not appreciated. 18:55 Back: pain, is absent, ROM is normal. 18:55 Neuro: Orientation: to person, place \T\ time. Mentation: is normal, Motor: moves all fours, strength is normal, Sensation: is normal. Vital Signs: 17:35 BP 142 / 102; Pulse 83; Resp 17; Temp 98.1; Pulse Ox 97% ; Weight 80.74 kg; Height 5 ll1 ft. 0 in. (152.40 cm); Pain 8/10; 20:42 BP 130 / 75; Pulse 78; Resp 18 S; Pulse Ox 100% on R/A; as6 21:30 BP 138 / 82; Pulse 72; Resp 18; Temp 98; Pulse Ox 100% on R/A; Pain 5/10; pf1 17:35 Body Mass Index 34.76 (80.74 kg, 152.40 cm) ll1 MDM: 18:04 Patient medically screened. 21:42 Data reviewed: vital signs, nurses notes, lab test result(s), radiologic studies, CT cp scan, ultrasound, and as a result, I will discharge patient. 21:42 Differential diagnosis: cholecystitis, Cholelithiasis, gastritis, gastroesophageal cp reflux disease, GI Bleed, pancreatitis, Peptic Ulcer Disease, Perf. Duodenal Ulcer, Perf. Gastric Ulcer, Ureterolithiasis, urinary tract infection. I considered the following discharge prescriptions or medication management in the emergency department Medications were administered in the Emergency Department. See MAR. Test considered but Not performed: Labs: h. pylori test. Other Details HIDA scan. Counseling: I had a detailed discussion with the patient and/or guardian regarding: the historical points, exam findings, and any diagnostic results supporting the discharge/admit diagnosis, lab results, radiology results, the need for outpatient follow up, a family practitioner, a business objects analyst, to return to the emergency department if symptoms worsen or persist or if there are any questions or concerns that arise at home. Response to treatment: the patient's symptoms have markedly improved after treatment, and as a result, I will discharge patient. Special discussion: Based on the patient's Hx, exam, and Dx evaluation, there is no indication for emergent surgery or inpatient Tx. It is understood by the patient/guardian that if the Sx's persist or worsen they need to return immediately for re-evaluation. 02 18:35 Order name: CBC with Diff; Complete Time: 20:16 cp 11/28 18:35 Order name: CMP; Complete Time: 21:13 cp 11/28 21:35 Interpretation: Normal except: GLUC 126; ALT 93; GLOB 3.7; A/G 1.0. cp 11/28 18:35 Order name: Lipase; Complete Time: 21:13 cp 11/28 18:35 Order name: Urine Microscopic Only; Complete Time: 20:16 cp 11/28 20:39 Order name: Urine --Ancillary (enter results); Complete Time: 21:35 bb 11/28 18:35 Order name: US Abdomen Limited: gallbladder; Complete Time: 20:16 cp 11/28 20:16 Interpretation: Report reviewed. cp 11/28 18:35 Order name: IV Saline Lock; Complete Time: 19:30 cp 11/28 18:35 Order name: Labs collected and sent; Complete Time: 19:30 cp 11/28 18:35 Order name: Urine Dipstick-Ancillary (obtain specimen); Complete Time: 19:30 cp 11/28 20:17 Order name: CT Abd/Pelvis - IV Contrast Only; Complete Time: 21:13 cp 11/28 21:13 Interpretation: Report reviewed. 11/28 18:35 Order name: Urine Test (obtain specimen); Complete Time: 19:30 cp 11/28 18:35 Order name: NPO; Complete Time: 19:31 cp 11/28 19:49 Order name: Misc. Order: recollect all labs; Complete Time: 20:35 bb Administered Medications: 20:41 Drug: Pepcid (famotidine) 20 mg Route: IVP; Site: right antecubital; as6 21:40 Follow up: Response: No adverse reaction; Marked relief of symptoms; Pain is decreased pf1 20:41 Drug: Zofran (Ondansetron) 4 mg Route: IVP; Site: right antecubital; as6 21:40 Follow up: Response: No adverse reaction; Marked relief of symptoms; Nausea is decreasedpf1 21:50 Drug: GI Cocktail without - (Maalox Suspension 30 ml, Lidocaine Liquid 2 % 15 pf1 ml) Route: PO; 22:07 Follow up: Response: No adverse reaction; Marked relief of symptoms pf1 Disposition Summary: 11/28/22 21:42 Discharge Ordered Location: Home cp Problem: new cp Symptoms: have improved cp Condition: Stable cp Diagnosis - Epigastric pain cp - Diarrhea, unspecified cp Followup: cp - With: Jose Curry MD - When: 1 week - Reason: pain continues Discharge Instructions: - Discharge Summary Sheet cp - Abdominal Pain, Adult cp - Food Choices to Help Relieve Diarrhea, Adult cp - Diarrhea, Adult cp - Gastroesophageal Reflux Disease, Adult cp Forms: - Medication Reconciliation Form cp - Thank You Letter cp - Antibiotic Education cp - Prescription Opioid Use cp Prescriptions: - Carafate 1 gram Oral Tablet - take 1 tablet by ORAL route 4 times per day take on an empty stomach, beginning cp on waking and last dose at bedtime. dissolve tablet in 8 oz warm water prior to ingestion; 100 tablet; Refills: 0, Product Selection Permitted - Protonix 40 mg Oral Tablet - take 1 tablet by ORAL route once daily; 30 tablet; Refills: 0, Product cp Selection Permitted Signatures: Dispatcher [employer] Estella Kolb RN RN William León PA PA cp Lewis, Lynsay, RN RN ll1 Bryce De La Cruz RN RN as6 Marissa regan RN RN pf1 Corrections: (The following items were deleted from the chart) 17:35 17:29 Allergies: No Known Allergies; ll1 ll1 17:35 17:33 Allergies: levaqui; ll1 ll1 21:14 21:13 Normal except: GLUC 126. cp cp 21:35 21:14 Normal except: GLUC 126; ALT 93. cp cp 11/29 16:20 11/28 18:45 Associated signs and symptoms: Pertinent positives: diarrhea, nausea, green cp colored stool, Pertinent negatives: anorexia, blood in stools, chest pain, constipation, fever, vomiting, vomiting blood, cp 11/29 16:22 02 18:50 Neuro: Negative for altered mental status, dizziness, headache, syncope, cp weakness, cp
--- NOTE | 2022-11-28 21:42 | ER ---
Nurse's Notes [facility] Name: Swati Andrea Age: 32 yrs Sex: Female : 1990 Arrival Date: 11/28/2022 Time: 17:27 Bed 4 Private MD: Diagnosis: Epigastric pain;Diarrhea, unspecified Presentation: 11/28 17:29 Chief complaint: Chief complaint: Patient states: upper abd pain for 8 days. Greenish ll1 tar stool now, was diarrhea for the first 3 days. No known fever. Ebola Screen: Patient denies travel to an Ebola-affected area in the 21 days before illness onset. Initial Sepsis Screen: Does the patient meet any 2 criteria? No. Patient's initial sepsis screen is negative. Does the patient have a suspected source of infection? Yes: Acute abdominal pain. Risk Assessment: Do you want to hurt yourself or someone else? Patient reports no desire to harm self or others. 17:29 Method Of Arrival: Ambulatory [facility] 17:29 Acuity: MARGARET 3 ll1 17:35 Coronavirus screen: Vaccine status: Patient reports receiving the 2nd dose of the covid ll1 vaccine. Client denies travel out of the [place] in the last 14 days. At this time, the client does not indicate any symptoms associated with coronavirus-19. Onset of symptoms was November 22, 2022. Historical: - Allergies: 17:33 Levaquin; ll1 - PMHx: 17:29 HTN WHILE ONLY; ll1 17:33 Asthma; ll1 - PSHx: 17:33 section; breast reduction; ll1 - Immunization history:: Client reports receiving the 2nd dose of the Covid vaccine. - Social history:: Smoking status: Patient denies any tobacco usage or history of. Screenin:42 [facility] ED Fall Risk Assessment (Adult) Score/Fall Risk Level 0 - 2 = Low Risk. Abuse as6 screen: Denies threats or abuse. Denies injuries from another. Nutritional screening: No deficits noted. Tuberculosis screening: No symptoms or risk factors identified. Assessment: 20:41 General: Appears in no apparent distress. Behavior is calm, cooperative. Pain: as6 Complains of pain in epigastric area. Pain: Complains of pain in head. Neuro: Level of Consciousness is awake, alert, obeys commands, Oriented to person, place, time, situation, Reports headache. Cardiovascular: Capillary refill < 3 seconds Patient's skin is warm and dry. Respiratory: Respiratory effort is even, unlabored, Respiratory pattern is regular, symmetrical. GI: Reports lower abdominal pain, indigestion, nausea. Derm: Skin is intact, is healthy with good turgor. 21:30 Reassessment: Patient appears in no apparent distress at this time. Patient and/or pf1 family updated on plan of care and expected duration. Pain level reassessed. Patient is alert, oriented x 3, equal unlabored respirations, skin warm/dry/pink. Patient states symptoms have improved. Patient C/O epigastric pain of 5 at this time. . 21:30 GI: Abdomen is round non-distended, Bowel sounds present X 4 quads. Abd is soft and non pf1 tender X 4 quads. Reports epigastric pain. Vital Signs: 17:35 BP 142 / 102; Pulse 83; Resp 17; Temp 98.1; Pulse Ox 97% ; Weight 80.74 kg; Height 5 ll1 ft. 0 in. (152.40 cm); Pain 8/10; 20:42 BP 130 / 75; Pulse 78; Resp 18 S; Pulse Ox 100% on R/A; as6 21:30 BP 138 / 82; Pulse 72; Resp 18; Temp 98; Pulse Ox 100% on R/A; Pain 5/10; pf1 17:35 Body Mass Index 34.76 (80.74 kg, 152.40 cm) ll1 ED Course: 17:27 Patient arrived in ED. am2 17:33 William Engel PA is PHCP. cp 17:33 Chris Vuong MD is Attending Physician. cp 17:33 Triage completed. ll1 17:37 Arm band placed on. ll1 18:52 US Abdomen Limited: gallbladder In Process Unspecified. EDMS 19:20 William Ward MD is Attending Physician. cp 19:29 Inserted saline lock: 20 gauge in right antecubital area, using aseptic technique. zm Blood collected. 19:30 CBC with Diff Sent. zm 19:30 CMP Sent. zm 19:30 Lipase Sent. zm 19:30 Urine Microscopic Only Sent. zm 20:02 CBC with Diff Sent. ls5 20:02 CMP Sent. ls5 20:02 Lipase Sent. ls5 20:18 Slawson, [place], RN is Primary Nurse. as6 20:42 Bed in low position. Call light in reach. Side rails up X 1. Adult w/ patient. Pulse ox as6 on. NIBP on. Warm blanket given. 20:52 CT Abd/Pelvis - IV Contrast Only In Process Unspecified. EDMS 21:41 Jose Curry MD is Referral Physician. cp 22:00 No provider procedures requiring assistance completed. pf1 22:07 IV discontinued, intact, bleeding controlled, No redness/swelling at site. Pressure pf1 dressing applied. Administered Medications: 20:41 Drug: Pepcid (famotidine) 20 mg Route: IVP; Site: right antecubital; as6 21:40 Follow up: Response: No adverse reaction; Marked relief of symptoms; Pain is decreased pf1 20:41 Drug: Zofran (Ondansetron) 4 mg Route: IVP; Site: right antecubital; as6 21:40 Follow up: Response: No adverse reaction; Marked relief of symptoms; Nausea is decreasedpf1 21:50 Drug: GI Cocktail without - (Maalox Suspension 30 ml, Lidocaine Liquid 2 % 15 pf1 ml) Route: PO; 22:07 Follow up: Response: No adverse reaction; Marked relief of symptoms pf1 Medication: 20:42 VIS not applicable for this client. as6 Outcome: 21:42 Discharge ordered by . cp 22:07 Discharged to home pf1 22:07 Discharged to home ambulatory. 22:07 Condition: good 22:07 Condition: good 22:07 Discharge instructions given to patient, Instructed on discharge instructions, follow up and referral plans. medication usage, Demonstrated understanding of instructions, follow-up care, medications, Prescriptions given X 2. 22:08 Patient left the ED. pf1 Signatures: Dispatcher [employer] EDDE Nathaly Colin RN RN iw Page, Corey, PA PA cp Carin Toth am2 Sharon Ortiz RN RN ll1 Bryce De La Cruz, JOSE RN as6 Ale Aponte Pamala, RN RN pf1 Jimmy Gutierrez ls5 Corrections: (The following items were deleted from the chart) 17:35 17:29 Allergies: No Known Allergies; ll1 ll1 17:35 17:33 Allergies: levaqui; ll1 ll1 17:52 17:29 Chief complaint: ll1 iw
[2022-11-28] MEDS ORDERED: MAGNES/ALUMIN/SIMET 30ML UCUP ONE (21:53)
[2022-11-28] MEDS ORDERED: LIDOCAINE VISCOUS 2% SOLN 15 ML UDC ONE (21:53)
[2022-11-28 22:35] VITALS: TEMP 98.1
[2022-11-28 22:41] VITALS: BP 130/75; O2SAT 100
== END 2022-11-28 22:08 | disposition home or self-care (01) ==
LOC: ER 17:26
DX: R10.13 Epigastric pain (principal); R19.7 Diarrhea, unspecified; Z88.1 Allergy status to other antibiotic agents
CPT/HCPCS: 85025; 36415; 81025; 81015; 83690; 80053; 74177; 76705; Q9967; J2405; 96374; 96375; 99284